=== PATIENT | male | born 1955 | race Caucasian/White ===

== ENCOUNTER → 2019-10-05 09:22 | Outpatient (CLI) | payer MEDICARE, OTHER, SELFPAY ==
[2019-10-05 11:24] LABS: Blood Urea Nitrogen 19 mg/dL (9-20); Calcium 9.8 mg/dL (8.4-10.2); Carbon Dioxide 28 mmol/L (22-32); Chloride 105 mmol/L (98-107); Estimated Glomerular Filt Rate > 60.0 mL/min (>60); Glucose 96 mg/dL (80-110); HEMOLYSIS < 15 (0-50); Potassium 4.8 mmol/L (3.4-5.1); Sodium 141 mmol/L (137-145)
[2019-10-05 11:56] LABS: Prostate Specific Antigen Scrn 1.45 ng/mL (0.1-4.0)
== END ==
PROVIDERS: PCP Student in an Organized Health Care Education/Training Program; Referring Provider Student in an Organized Health Care Education/Training Program; Visit Provider Student in an Organized Health Care Education/Training Program
DX: Z12.5 Encounter for screening for malignant neoplasm of prostate (principal); I10 Essential (primary) hypertension
CPT/HCPCS: 36415; 80048; G0103

== ENCOUNTER → 2019-10-15 16:06 | Outpatient (CLI) | payer MEDICARE, OTHER, SELFPAY ==
--- NOTE | 2019-10-15 16:09 | DI.US.S_ITS ---
PROCEDURE: US ABD AORTA ANEURYSM SCREEN INDICATIONS: AAA SCREEN TECHNIQUE: Real time scanning was performed of the aorta and iliac arteries, with image documentation. COMPARISON: None. FINDINGS: Aorta: Proximal aortic diameter measures 2.7 cm. Mid-aorta measures 2.2 cm. Distal aortic diameter is 2.2 cm. Iliac arteries: Right common iliac artery measures 1.3 cm. Left common iliac artery measures 1.4 cm. IMPRESSION: Negative for aneurysm. Dictated by: Magdy Rizo M.D. on 10/15/2019 at 16:39 Approved by: Magdy Rizo M.D. on 10/15/2019 at 16:40
== END ==
PROVIDERS: PCP Student in an Organized Health Care Education/Training Program; Referring Provider Student in an Organized Health Care Education/Training Program; Visit Provider Student in an Organized Health Care Education/Training Program
DX: Z13.6 Encounter for screening for cardiovascular disorders (principal); Z87.891 Personal history of nicotine dependence
CPT/HCPCS: 76706

== ENCOUNTER → 2020-10-16 07:09 | Outpatient (CLI) | payer MEDICARE, OTHER, SELFPAY ==
[2020-10-16 08:53] LABS: BUN Creatinine Ratio 17.1 (6-22); Blood Urea Nitrogen 22 mg/dL (9-20); Calcium 9.6 mg/dL (8.4-10.2); Carbon Dioxide 26 mmol/L (22-32); Chloride 106 mmol/L (98-107); Cholesterol 199 mg/dL (140-199); Estimated Glomerular Filt Rate 55.7 mL/min (>60); Glucose 92 mg/dL (80-110); HDL Cholesterol 42 mg/dL (40-60); HEMOLYSIS < 15 (0-50); LDL Cholesterol Calculated 139 mg/dL (<100); Potassium 4.5 mmol/L (3.4-5.1); Sodium 140 mmol/L (137-145); Triglycerides 90 mg/dL (35-150)
[2020-10-16 09:13] LABS: Prostate Specific Antigen Scrn 1.84 ng/mL (0.1-4.0)
== END ==
PROVIDERS: PCP Student in an Organized Health Care Education/Training Program; Referring Provider Student in an Organized Health Care Education/Training Program; Visit Provider Student in an Organized Health Care Education/Training Program
DX: E78.2 Mixed hyperlipidemia (principal); Z12.5 Encounter for screening for malignant neoplasm of prostate; I10 Essential (primary) hypertension
CPT/HCPCS: 36415; 80048; 80061; G0103

== ENCOUNTER → 2020-10-31 07:15 | Outpatient (CLI) | payer MEDICARE, OTHER, SELFPAY ==
[2020-10-31 07:59] LABS: BUN Creatinine Ratio 16.5 (6-22); Blood Urea Nitrogen 19 mg/dL (9-20); Estimated Glomerular Filt Rate > 60.0 mL/min (>60)
== END ==
PROVIDERS: PCP Student in an Organized Health Care Education/Training Program; Referring Provider Student in an Organized Health Care Education/Training Program; Visit Provider Student in an Organized Health Care Education/Training Program
DX: N17.9 Acute kidney failure, unspecified (principal)
CPT/HCPCS: 36415; 82565; 84520

== ENCOUNTER → 2021-01-21 07:16 | Outpatient (CLI) | payer MEDICARE, OTHER, SELFPAY ==
[2021-01-21 07:57] LABS: Cholesterol 152 mg/dL (140-199); HDL Cholesterol 60 mg/dL (40-60); LDL Cholesterol Calculated 75 mg/dL (<100); Triglycerides 83 mg/dL (35-150)
== END ==
PROVIDERS: PCP Student in an Organized Health Care Education/Training Program; Referring Provider Student in an Organized Health Care Education/Training Program; Visit Provider Student in an Organized Health Care Education/Training Program
DX: E78.2 Mixed hyperlipidemia (principal)
CPT/HCPCS: 36415; 80061

== ENCOUNTER → 2022-04-05 16:45 | Outpatient (CLI) | payer MEDICARE, OTHER, SELFPAY ==
[2022-04-05 19:11] LABS: Hep C Virus Ab w/Reflex Quant NEGATIVE s/c (NEGATIVE)
[2022-04-05 19:22] LABS: BUN Creatinine Ratio 23.8 (6-22); Blood Urea Nitrogen 30 mg/dL (9-20); Carbon Dioxide 27 mmol/L (22-32); Chloride 106 mmol/L (98-107); Estimated Glomerular Filt Rate > 60 mL/min (>60); Glucose 94 mg/dL (80-110); HEMOLYSIS < 15 (0-50); Potassium 4.2 mmol/L (3.4-5.1); Sodium 140 mmol/L (137-145)
[2022-04-05 19:57] LABS: Prostate Specific Antigen Scrn 1.81 ng/mL (0.1-4.0)
== END ==
PROVIDERS: PCP Student in an Organized Health Care Education/Training Program; Referring Provider Student in an Organized Health Care Education/Training Program; Visit Provider Student in an Organized Health Care Education/Training Program
DX: Z12.5 Encounter for screening for malignant neoplasm of prostate (principal); I10 Essential (primary) hypertension; Z11.59 Encounter for screening for other viral diseases
CPT/HCPCS: 36415; 80048; 86803; G0103

== ENCOUNTER → 2022-11-04 17:45 | Outpatient (CLI) | payer MEDICARE, OTHER, SELFPAY ==
--- NOTE | 2022-11-04 17:51 | DI.RAD.S_ITS ---
PROCEDURE: XR RIBS LT MIN 3V W CXR1V INDICATIONS: Rib injury TECHNIQUE: 2 views of the left ribs were acquired, along with a single view chest. COMPARISON: None. FINDINGS: Surgical changes and devices: None. Bones and chest wall: No fractures or dislocations. No suspicious bony lesions. Overlying soft tissues appear unremarkable. Lungs and pleura: No pleural effusions or pneumothorax. Lungs appear clear. Mediastinum: Mediastinal contours appear normal. Heart size is normal. IMPRESSION: No acute displaced rib fracture identified. Dictated by: Evan Flannery M.D. on 11/05/2022 at 11:16 Approved by: Evan Flannery M.D. on 11/05/2022 at 11:24
== END ==
PROVIDERS: PCP Student in an Organized Health Care Education/Training Program; Referring Provider Nurse Practitioner Family; Visit Provider Nurse Practitioner Family
DX: S29.9XXA Unspecified injury of thorax, initial encounter (principal); X58.XXXA Exposure to other specified factors, initial encounter
CPT/HCPCS: 71101

== ENCOUNTER → 2023-06-15 09:15 | Outpatient (CLI) | payer MEDICARE, OTHER, SELFPAY ==
[2023-06-15 10:05] LABS: Add Manual Diff / Slide Review NO; Basophils Absolute Auto 0 /uL (0-100); Basophils Percent Auto 0.4 % (0-2); Eosinophils Absolute Auto 200 /uL (0-450); Eosinophils Percent Auto 2.1 % (2-4); Hematocrit 41.6 % (41-53); Lymphocytes Absolute Auto 1900 /uL (1100-4500); Lymphocytes Percent Auto 24.2 % (25-40); Mean Corpuscular HGB Conc 33.7 % (30-36); Mean Corpuscular Volume 89.2 fL (80-100); Monocytes Absolute Auto 600 /uL (0-900); Monocytes Percent Auto 8.1 % (3-14); Neutrophils Absolute Auto 5000 /uL (1500-7000); Neutrophils Percent Auto 65.2 % (50-75); Platelet Count 243 X10^3/uL (150-400); Red Blood Cell Count 4.66 X10^6/uL (4.5-5.9); Red Cell Distribution Width 14.4 % (11.6-14.8); White Blood Cell Count 7.7 X10^3/uL (4.5-11.0)
[2023-06-15 10:12] LABS: Hemoglobin A1C% w Est Avg Glu 5.5 % (4.0-6.0)
[2023-06-15 10:30] LABS: Alanine Aminotransferase 26 IU/L (<50); Albumin 4.2 g/dL (3.5-5.0); Albumin Globulin Ratio 1.6 (1.0-2.8); Alkaline Phosphatase 50 U/L (38-126); Aspartate Aminotransferase 28 IU/L (17-59); BUN Creatinine Ratio 15.9 (6-22); Bilirubin Total 0.7 mg/dL (0.2-1.3); Blood Urea Nitrogen 17 mg/dL (9-20); Carbon Dioxide 30 mmol/L (22-32); Chloride 105 mmol/L (98-107); Cholesterol 138 mg/dL (140-199); Estimated Glomerular Filt Rate > 60 mL/min (>60); Globulin 2.7 g/dL (1.7-4.1); Glucose 93 mg/dL (80-110); HDL Cholesterol 50 mg/dL (40-60); HEMOLYSIS < 15 (0-50); LDL Cholesterol Calculated 73 mg/dL (<100); Potassium 4.5 mmol/L (3.4-5.1); Sodium 141 mmol/L (137-145); Total Protein 6.9 g/dL (6.3-8.2); Triglycerides 75 mg/dL (35-150)
[2023-06-15 11:18] LABS: Creatinine Urine Random 83.9 mg/dL
[2023-06-15 11:25] LABS: Microalbumi Creatinin Ratio Ur 11.9 ug/mg CR (<30)
== END ==
PROVIDERS: PCP Family Medicine; Referring Provider Family Medicine; Visit Provider Family Medicine
DX: I10 Essential (primary) hypertension (principal); E78.2 Mixed hyperlipidemia; Z76.89 Persons encountering health services in other specified circumstances; B35.1 Tinea unguium; Z13.1 Encounter for screening for diabetes mellitus
CPT/HCPCS: 36415; 80053; 80061; 82043; 82570; 83036; 85025

== ENCOUNTER → 2024-06-11 10:21 | Outpatient (CLI) | payer MEDICARE, OTHER, SELFPAY ==
[2024-06-11 11:18] LABS: Add Manual Diff / Slide Review NO; Basophils Absolute Auto 0 /uL (0-100); Basophils Percent Auto 0.4 % (0-2); Eosinophils Absolute Auto 100 /uL (0-450); Eosinophils Percent Auto 1.3 % (2-4); Hematocrit 40.4 % (41-53); Hemoglobin 13.7 g/dL (13.5-17.5); Lymphocytes Absolute Auto 1900 /uL (1100-4500); Lymphocytes Percent Auto 24.6 % (25-40); Mean Corpuscular HGB Conc 33.9 % (30-36); Mean Corpuscular Volume 88.7 fL (80-100); Monocytes Absolute Auto 600 /uL (0-900); Monocytes Percent Auto 8.2 % (3-14); Neutrophils Absolute Auto 5100 /uL (1500-7000); Neutrophils Percent Auto 65.5 % (50-75); Platelet Count 221 X10^3/uL (150-400); Red Blood Cell Count 4.56 X10^6/uL (4.5-5.9); Red Cell Distribution Width 13.4 % (11.6-14.8); White Blood Cell Count 7.7 X10^3/uL (4.5-11.0)
[2024-06-11 11:36] LABS: Alanine Aminotransferase 26 IU/L (<50); Albumin 4.2 g/dL (3.5-5.0); Albumin Globulin Ratio 1.8 (1.0-2.8); Alkaline Phosphatase 49 U/L (38-126); Aspartate Aminotransferase 34 IU/L (17-59); BUN Creatinine Ratio 15.5 (6-22); Bilirubin Total 0.6 mg/dL (0.2-1.3); Blood Urea Nitrogen 20 mg/dL (9-20); Calcium 9.2 mg/dL (8.4-10.2); Carbon Dioxide 28 mmol/L (22-32); Chloride 105 mmol/L (98-107); Cholesterol 154 mg/dL (140-199); Estimated Glomerular Filt Rate > 60 mL/min (>60); Globulin 2.4 g/dL (1.7-4.1); Glucose 95 mg/dL (80-110); HDL Cholesterol 54 mg/dL (40-60); HEMOLYSIS < 15 (0-50); LDL Cholesterol Calculated 84 mg/dL (<100); Potassium 4.5 mmol/L (3.4-5.1); Sodium 138 mmol/L (137-145); Total Protein 6.6 g/dL (6.3-8.2); Triglycerides 82 mg/dL (35-150)
[2024-06-11 11:48] LABS: Creatinine Urine Random 54.04 mg/dL
[2024-06-11 11:59] LABS: Microalbumin Urine Random < 0.6 mg/dL (0-1.6)
[2024-06-11 12:06] LABS: Prostate Specific Antigen Scrn 2.71 ng/mL (0.1-4.0)
== END ==
LOC: LAB 10:22
PROVIDERS: PCP Family Medicine; Referring Provider Family Medicine; Visit Provider Family Medicine
DX: E78.2 Mixed hyperlipidemia (principal); Z12.5 Encounter for screening for malignant neoplasm of prostate; I10 Essential (primary) hypertension
CPT/HCPCS: 36415; 80053; 80061; 82043; 82570; 85025; G0103

== ENCOUNTER → 2024-10-08 14:22 | Outpatient (CLI) | payer MEDICARE, OTHER, SELFPAY ==
--- NOTE | 2024-10-08 14:25 | DI.RAD.S_ITS ---
PROCEDURE: XR HAND LT MIN 3V INDICATIONS: Left hand pain - 1st mtp and metacarpal TECHNIQUE: 3 views of the hand acquired. COMPARISON: None. FINDINGS: Bones: No acute fractures or dislocations. Chronic healed fracture deformity of the 5th metacarpal. Mild degenerative changes. Carpal bones are normally aligned. No suspicious bony lesions. Soft tissues: Trace chondrocalcinosis. IMPRESSION: No acute osseous abnormality. If there is continued clinical concern or persistent symptoms, repeat radiographs or cross-sectional imaging (e.g. CT, MRI) may be helpful for further evaluation. Approved by: Evan Cisse M.D. on 10/08/2024 at 14:54
== END ==
PROVIDERS: PCP Family Medicine; Referring Provider Registered Nurse; Visit Provider Registered Nurse
DX: M79.642 Pain in left hand (principal)
CPT/HCPCS: 73130

== ENCOUNTER → 2025-03-28 10:57 | Outpatient (CLI) | payer MEDICARE, OTHER, SELFPAY ==
[2025-03-28 13:39] LABS: Influenza A - CEPHEID Flu A NEGATIVE (NEGATIVE); Influenza B - CEPHEID Flu B NEGATIVE (NEGATIVE)
[2025-03-28 13:40] LABS: COVID-19 CEPHEID 4-PLEX PCR Negative (Negative)
== END ==
PROVIDERS: PCP Family Medicine; Visit Provider Nurse Practitioner Family
DX: J02.9 Acute pharyngitis, unspecified (principal)
CPT/HCPCS: 87637

== ENCOUNTER → 2025-04-05 10:40 | Outpatient (CLI) | payer MEDICARE, OTHER, SELFPAY ==
--- NOTE | 2025-04-05 10:43 | DI.RAD.S_ITS ---
PROCEDURE: XR CHEST 2V INDICATIONS: Cough TECHNIQUE: 2 views of the chest were acquired. COMPARISON: None. FINDINGS: Surgical changes and devices: None. Lungs and pleura: Mild nonspecific diffuse interstitial prominence, which may suggest mild intersittial pulmonary edema. Small somewhat band-like opacity in the right lower lung zone is favored to reflect atelectasis. Lungs are otherwise clear. No pleural effusions or pneumothorax. Mediastinum: Mediastinal contours are normal. Heart size is normal. Bones and chest wall: No suspicious bony abnormalities. Soft tissues appear unremarkable. IMPRESSION: Mild nonspecific diffuse interstitial prominence, which may suggest mild intersittial pulmonary edema. Small somewhat band-like opacity in the right lower lung zone is favored to reflect atelectasis. Lungs are otherwise clear. Dictated by: Homero Rodríguez M.D. on 04/07/2025 at 23:05 Approved by: Homero Rodríguez M.D. on 04/07/2025 at 23:10
== END ==
LOC: RAD 10:42
PROVIDERS: PCP Family Medicine; Referring Provider Nurse Practitioner Family; Visit Provider Nurse Practitioner Family
DX: R05.9 Cough, unspecified (principal)
CPT/HCPCS: 71046

== ENCOUNTER 2025-04-09 13:20 | Emergency (ER) | payer MEDICARE, OTHER, SELFPAY ==
[2025-04-09 13:25] VITALS: BP 137/63; PULSE 88; RESP 18; TEMP 37.2; O2SAT 95; BMI 26.2
--- NOTE | 2025-04-09 13:30 | DI.RAD.S_ITS ---
PROCEDURE: XR CHEST 2V INDICATIONS: cough TECHNIQUE: 2 views of the chest were acquired. COMPARISON: [facility], CR, XR CHEST 2V, 04/05/2025, 10:52. FINDINGS: Surgical changes and devices: None. Lungs and pleura: Interstitial patchy opacities are present bilaterally progressive compared to prior exam. Mediastinum: Mediastinal contours are normal. Heart size is normal. Bones and chest wall: No suspicious bony abnormalities. Soft tissues appear unremarkable. IMPRESSION: Progressive opacities most suggestive of pneumonia. Recommend interval follow- up to document resolution. Dictated by: Reba Holliday M.D. on 04/09/2025 at 14:13 Approved by: Reba Holliday M.D. on 04/09/2025 at 14:13
[2025-04-09 14:15] LABS: Influenza A - CEPHEID Flu A NEGATIVE (NEGATIVE); Influenza B - CEPHEID Flu B NEGATIVE (NEGATIVE)
[2025-04-09 14:37] LABS: COVID-19 CEPHEID 4-PLEX PCR Negative (Negative)
--- NOTE | 2025-04-09 15:33 | ED_ITS ---
<Statement entered by Gwyn Jones, DO - 04/09/25 20:05> Co-sign statement: I was available for consultation during this patient's emergency department visit. This chart is being signed by myself for administrative purposes only. I do not have direct contact with this patient during this visit. They were seen independently by the APC. HPI - URI/Sore Throat General Chief Complaint: Shortness of Breath/Dyspnea Stated Complaint: cough Time Seen by Provider: 04/09/25 14:34 Source: patient Mode of arrival: Ambulatory History of Present Illness HPI Narrative: Mr. Ayala is a pleasant 69-year-old male with a past medical history of hypertension, hyperlipidemia, sacroiliac dysfunction who presents to the emergency department for cough x3 weeks. Patient's symptoms are worse at night. He has been to the walk-in clinic a few times, had an XR Tuesday, was started on azithromycin Tuesday (yesteday). States that despite taking azithromycin since yesterday, his symptoms have been getting worse. He denies any known sick contacts, no recent hospitalization, no history of COPD, asthma, quit smoking 30 years ago. He is not having any pain, he is not able to produce any mucus. He is having a runny nose. No nausea vomiting, diarrhea. Related Data Previous Rx's ?Medication ?Instructions ?Recorded atorvastatin 10 mg tablet (Lipitor) 10 mg PO HS #90 ta bs 06/20/24 lisinopril 20 mg tablet 20 mg PO DAILY #90 tabs 06/03 02/24 benzonatate 200 mg capsule 200 mg PO BID PRN cough #28 caps 03/28/25 azithromycin 250 mg tablet See Rx Instructions PO .COM PLEX #6 04/08/25 tabs amoxicillin 875 mg-potassium 1 tab PO BID 7 days #14 t abs 04/09/25 clavulanate 125 mg tablet doxycycline hyclate 100 mg capsule 100 mg PO BID 7 day s #14 caps 04/09/25 hydrocodone-homatropine 5 mg-1.5 5 ml PO Q6H PRN cough 3 days #60 mL 04/09/25 mg/5 mL (5 mL) oral solution (Hycodan) ondansetron 4 mg disintegrating 4 mg PO Q8H PRN nausea and 04/09/25 tablet vomiting #14 tabs Allergies Allergy/AdvReac Type Severity Reaction Status Date / Time No Known Drug Allergies Allergy Verified 04/05/25 10:16 Review of Systems Review of Systems ROS Unobtainable: All systems reviewed & are unremarkable except as noted in HPI and below Patient History Medical History Shoulder pain (~2015) History of colon polyps Surgical History Anesthesia History of tonsillectomy (~1957) History of removal of cyst (~1973) History of colonoscopy (~2014) History of shoulder surgery (~04/2017) Family History Father Brain aneurysm Mother Diabetes mellitus Hypertension Social History Smoking Status: Never smoker Tobacco: How many years used: 25 alcohol intake: former substance use type: does not use during the past year weight has: decreased > 10 lbs well-balanced diet: daily or most days Type(s) of exercise: walking frequency: daily duration: 15-30 minutes/day Smoking Status: Never smoker Exam Narrative Exam Narrative: GENERAL: 69 year old patient appears stated age. Well-developed patient, in no acute distress. HEAD: Atraumatic. Normocephalic. EYES: No scleral icterus. No injection or drainage. NECK: Trachea midline. Cervical ROM intact. CARDIOVASCULAR: Regular rate and rhythm. RESPIRATORY: ?Nonlabored respirations. ?Speaking in clear, full sentences. Pain coarse breath sounds bilaterally, no wheezing, no tachypnea. EXTREMITIES: No LE edema. NEURO: AOx3. ?Clear speech. ?Moves all 4 extremities appropriately. SKIN: No rash or erythema of visible areas Initial Vital Signs Initial Vital Signs: Vital Signs Temperature 98.9 F 04/09/25 13:25 Pulse Rate 88 04/09/25 13:25 Respiratory Rate 18 04/09/25 13:25 Blood Pressure 137/63 04/09/25 13:25 Pulse Oximetry 95 04/09/25 13:25 Oxygen Delivery Method Room Air 04/09/25 13:25 Course Orders Ordered: ED Orders 04/09/25 13:30 XR chest 2V Stat Covid-19 + FLU A/B + RSV - PCR Stat Discontinued Medications Hydrocodone Bitart/Acetaminophen (Hydrocodone/Acet 5/325 Tablet) 1 tab PO NOW ONE Stop: 04/09/25 15:49 Last Admin: 04/09/25 16:04 Dose: 1 tab Amoxicillin/Clavulanate Potassium (Amoxicillin/Clav 875/125 Mg) 1 tab PO NOW ONE Stop: 04/09/25 15:49 Last Admin: 04/09/25 16:04 Dose: 1 tab Doxycycline Hyclate (Doxycycline Hyclate 100 Mg Tablet) 100 mg PO NOW ONE Stop: 04/09/25 15:49 Last Admin: 04/09/25 16:04 Dose: 100 mg Ondansetron HCl (Ondansetron 4 Mg Odt) 4 mg SL NOW ONE Stop: 04/09/25 15:49 Last Admin: 04/09/25 16:04 Dose: 4 mg Vital Signs Vital signs: Vital Signs - 8 hr 04/09/25 13:25 04/09/25 15:38 Temperature 98.9 F Pulse Rate 88 69 Respiratory Rate 18 18 Blood Pressure 137/63 120/67 Pulse Oximetry 95 96 Oxygen Delivery Method Room Air Room Air MDM - URI/Sore Throat Medical Records Attestation: I reviewed the patient's medical records. Lab Data Labs: Lab Results 04/09/25 Range/Units 13:30 SARS-CoV-2 (PCR) Negative (Negative) Influenza A (RT-PCR) Flu a negative (NEGATIVE) Influenza B (RT-PCR) Flu b negative (NEGATIVE) RSV (PCR) Negative (Negative) Imaging Data Chest x-ray: Radiologist's Impression: PROCEDURE: XR CHEST 2V INDICATIONS: cough TECHNIQUE: 2 views of the chest were acquired. COMPARISON: [facility], , XR CHEST 2V, 04/05/2025, 10:52. FINDINGS: Surgical changes and devices: None. Lungs and pleura: Interstitial patchy opacities are present bilaterally progressive compared to prior exam. Mediastinum: Mediastinal contours are normal. Heart size is normal. Bones and chest wall: No suspicious bony abnormalities. Soft tissues appear unremarkable. IMPRESSION: Progressive opacities most suggestive of pneumonia. Recommend interval follow- up to document resolution. Dictated by: Reba Holliday M.D. on 04/09/2025 at 14:13 Approved by: Reba Holliday M.D. on 04/09/2025 at 14:13 [facility] Narrative Medical decision making narrative: 69-year-old male with a past medical history of hypertension, hyperlipidemia, sacroiliac dysfunction who presents to the emergency department for cough x3 weeks. Differential diagnosis includes but is not limited to pneumonia, viral syndrome, postviral cough, reactive airway disease, pleural effusion, malignancy, etc. On exam patient is in no acute distress, nontoxic appearing, vital signs within normal limits. He is not tachycardic, tachypneic or hypoxic. Viral swab and chest x-ray obtained in triage. He went to the walk-in clinic on Tuesday had an x-ray and was prescribed azithromycin which started yesterday. He is not having any wheezing, some coarse breath sounds bilaterally, no lower extremity edema. Repeat x-ray today reveals progressive opacities most suggestive of bilateral pneumonia. Recommend interval follow up. Negative viral swab. Printed and discussed results with the patient his . We will treat as community-acquired pneumonia with Augmentin and doxycycline. Recommended stopping the azithromycin. We will print Hycodan for severe nighttime coughing. Discussed risks of opioids. We will also prescribed Zofran help prevent any nausea. Discussed with the patient that he needs to have a repeat chest x-ray with his primary care doctor to assure resolution of this pneumonia, however we discussed very strict ER return precautions. Patient's verbalized understanding all information happy with the plan, he is ambulatory and stable for discharge home all vital signs within normal limits. Discharge Plan Departure Patient Disposition: Home Clinical Impression: Bilateral pneumonia Qualifiers: Pneumonia type: due to unspecified organism Lung location: unspecified part of lung Qualified Code(s): J18.9 - Pneumonia, unspecified organism Community acquired pneumonia Qualifiers: Laterality: unspecified laterality Qualified Code(s): J18.9 - Pneumonia, unspecified organism Instructions: DI for Pneumonia -- Adult Activity Restrictions/Additional Instructions: Dear Jamie, Thank you for coming to the emergency department. Today you were evaluated for persistent cough. Your chest x-ray revealed progressive pneumonia of both lungs. Your vital signs are all very reassuring. I would like you to stop taking the azithromycin and start taking doxycycline and Augmentin. You were also provided with a printed script for an opioid cough suppressant called Myah ycodagage. Please bring this to your pharmacy to be filled, you may need to bring it to a different pharmacies if they do not have the medication in stock. Because antibiotics and opioids can upset your stomach, you have been prescribed Zofran which is a nausea medication to use only if needed. Please rest, hydrate, complete the full course of antibiotics, and follow up with your primary care doctor for repeat chest x-ray. If you develop any new or worsening symptoms such as trouble breathing, chest pain, persistent fevers or any other concerns please return to ER immediately. You have been prescribed a short course of narcotic medications. These are potentially dangerous and addictive medications that should be used carefully. While on these medications you cannot drive or operate heavy machinery. Additionally, you cannot sign legal documents or perform any duties such as this. Many people get constipated on narcotic medications so it would be advisable to discuss stool softeners with the pharmacist when you excelsior picker your prescription. Please understand that we cannot provide further refills of narcotics or controlled substances through the ED and your pain management will need to be through your Primary Care Provider Please follow up with your primary care doctor within the next 2-3 days for ER follow-up. (If you do not have a PCP you can call [phone]. ?to schedule an appointment with an [facility] Primary Care Provider) IF YOU DEVELOP ANY NEW OR WORSENING SYMPTOMS, RETURN TO THE ER! Please read the attached instructions, they highlight more specific treatments and interventions for you at home. Thank you for letting me participate in your care, Yael Diez PA-C Prescriptions: New hydrocodone-homatropine [Hycodan] 5-1.5 mg/5 mL (5 mL) solution 5 ml PO Q6H PRN (Reason: cough) 3 Days Qty: 60 0RF doxycycline hyclate 100 mg capsule 100 mg PO BID 7 Days Qty: 14 0RF ondansetron 4 mg tablet,disintegrating 4 mg PO Q8H PRN (Reason: nausea and vomiting) Qty: 14 0RF amoxicillin-pot clavulanate 875-125 mg tablet 1 tab PO BID 7 Days Qty: 14 0RF No Action atorvastatin [Lipitor] 10 mg tablet 10 mg PO HS Qty: 90 3RF lisinopril 20 mg tablet 20 mg PO DAILY Qty: 90 3RF benzonatate 200 mg capsule 200 mg PO BID PRN (Reason: cough) Qty: 28 0RF azithromycin 250 mg tablet See Rx Instructions PO .COMPLEX Qty: 6 0RF Rx Instructions: For 250 mg dose pack: take 500 mg today (day 1), then 250 mg for 4 days (days 2-5) PO Referrals: Nato Perez MD [Primary Care Provider, Family Practice] Stand Alone Forms: Patient Portal/API
[2025-04-09 15:38] VITALS: BP 120/67; PULSE 69; RESP 18; O2SAT 96
[2025-04-09] MEDS: AMOXICILLIN/CLAV 875/125 MG 1 TAB PO (16:04)
[2025-04-09] MEDS: ONDANSETRON 4 MG ODT SL (16:04)
[2025-04-09] MEDS: DOXYCYCLINE HYCLATE 100 MG TABLET PO (16:04)
== END 2025-04-09 16:09 | disposition home or self-care (01) ==
PROVIDERS: Family Medicine; Emergency Provider Physician Assistant; PCP Family Medicine
DX: J18.9 Pneumonia, unspecified organism (principal)
CPT/HCPCS: 71046; 87637; 99283

== ENCOUNTER 2025-04-10 20:06 | Inpatient (IN) | payer MEDICARE, OTHER, SELFPAY ==
[2025-04-10 20:20] VITALS: BP 150/67; PULSE 102; RESP 20; TEMP 37.9; O2SAT 90; BMI 26.0
[2025-04-10] MEDS: ALBUTEROL/IPRATROPIUM 3 ML AMPUL INH (20:36)
[2025-04-10 20:38] VITALS: PULSE 95; RESP 18; O2SAT 96
[2025-04-10 20:49] VITALS: PULSE 90; RESP 16; O2SAT 92
--- NOTE | 2025-04-10 23:05 | DI.RAD.S_ITS ---
PROCEDURE: XR CHEST 2V INDICATIONS: cough TECHNIQUE: 2 views of the chest were acquired. COMPARISON: [facility], CR, XR CHEST 2V, 04/09/2025, 13:28. [facility], CR, XR CHEST 2V, 04/05/2025, 10:52. FINDINGS: Surgical changes and devices: None. Lungs and pleura: Lungs are moderately inflated. Progressive extensive multifocal airspace opacities throughout both lungs. Trace bilateral pleural effusions. No pneumothorax. Mediastinum: Mediastinal contours are normal. Heart size is normal. Bones and chest wall: No suspicious bony abnormalities. Soft tissues appear unremarkable. IMPRESSION: Progressive extensive multifocal airspace opacities concerning for atypical/multifocal pneumonia, consider COVID-19 pneumonia. Dictated by: John Ness M.D. on 04/10/2025 at 23:51 Approved by: John Ness M.D. on 04/10/2025 at 23:53
[2025-04-11] VITALS (15 sets, daily range): BP systolic 112–144; BP diastolic 55–70; PULSE 69–88; RESP 15–33; TEMP 36.3–37.4; O2SAT 83–96; BMI 26.3
[2025-04-11 01:52] LABS: Lactate (Lactic Acid) 0.8 mmol/L (0.7-2.1)
--- NOTE | 2025-04-11 01:57 | ED_ITS ---
HPI - General Adult General Chief complaint: Upper Respiratory Symptoms Stated complaint: pneumonia Time Seen by Provider: 04/10/25 23:05 Source: patient Mode of arrival: Ambulatory History of Present Illness HPI narrative: 69-year-old male with ongoing cough and shortness of breath, recalls being seen about 10 days ago walk-in clinic with cough, given prescription for azithromycin, presented here on 04/09/2025 with continued cough, chest x-ray showing infiltrates, no oxygen requirement, was advised to stop the azithromycin and was prescribed new course of antibiotic with Augmentin and doxycycline, he has been taking those medications for the last 3 days. Has continued cough. Feels feverish. Denies chest discomfort. Cough remains dry. No leg pain or swelling symptoms. Related Data Previous Rx's ?Medication ?Instructions ?Recorded atorvastatin 10 mg tablet (Lipitor) 10 mg PO HS #90 ta bs 06/20/24 lisinopril 20 mg tablet 20 mg PO DAILY #90 tabs 06/03 02/24 benzonatate 200 mg capsule 200 mg PO BID PRN cough #28 caps 03/28/25 amoxicillin 875 mg-potassium 1 tab PO BID 7 days #14 t abs 04/09/25 clavulanate 125 mg tablet doxycycline hyclate 100 mg capsule 100 mg PO BID 7 day s #14 caps 04/09/25 hydrocodone-homatropine 5 mg-1.5 5 ml PO Q6H PRN cough 3 days #60 mL 04/09/25 mg/5 mL (5 mL) oral solution (Hycodan) ondansetron 4 mg disintegrating 4 mg PO Q8H PRN nausea and 04/09/25 tablet vomiting #14 tabs Allergies Allergy/AdvReac Type Severity Reaction Status Date / Time No Known Drug Allergies Allergy Verified 04/10/25 20:20 Patient History Medical History Shoulder pain (~2015) History of colon polyps Surgical History Anesthesia History of tonsillectomy (~1957) History of removal of cyst (~1973) History of colonoscopy (~2014) History of shoulder surgery (~04/2017) Family History Father Brain aneurysm Mother Diabetes mellitus Hypertension Social History household members: spouse Smoking Status: Former smoker Tobacco: How many years used: 25 alcohol intake: former substance use type: does not use during the past year weight has: decreased > 10 lbs well-balanced diet: daily or most days Type(s) of exercise: walking frequency: daily duration: 15-30 minutes/day Smoking Status: Former smoker Exam Narrative Exam Narrative: GENERAL: Well-developed patient, in mild distress. HEAD: Atraumatic. Normocephalic. EYES: Pupils equal round and reactive. Extraocular motions intact. No scleral icterus. No injection or drainage. ENT: Nose without bleeding, purulent drainage. Throat without erythema, tonsillar hypertrophy or exudate. Airway patent. NECK: Trachea midline. Non tender CARDIOVASCULAR: Regular rate and rhythm without murmurs, gallops, or rubs. RESPIRATORY: Clear to auscultation. Breath sounds equal bilaterally. No wheezes, rales, or rhonchi. GASTROINTESTINAL: Abdomen soft, non-tender, nondistended. EXTREMITIES: No edema or joint tenderness. BACK: Nontender without deformity or crepitance. No flank tenderness. NEURO: AOx3. Motor functions grossly nonfocal. SKIN: No rash or erythema of visible areas Initial Vital Signs Initial Vital Signs: Vital Signs Temperature 100.3 F H 04/10/25 20:20 Pulse Rate 102 H 04/10/25 20:20 Respiratory Rate 20 04/10/25 20:20 Blood Pressure 150/67 H 04/10/25 20:20 Pulse Oximetry 90 L 04/10/25 20:20 Oxygen Delivery Method Room Air 04/10/25 20:20 Course Orders Ordered: Acetaminophen (Acetaminophen 325 Mg Tablet) 650 mg PO Q6HR PRN PRN Reason: Fever/Mild Pain (1-3) Albuterol (Albuterol 2.5 Mg/3 Ml Neb (Adult)) 2.5 mg INH [id number] MARILOU Last Admin: 04/11/25 13:32 Dose: 2.5 mg Documented By: Admin: 04/11/25 09:01 Dose: 2.5 mg Documented By: Admin: 04/11/25 07:00 Dose: Not Given Documented By: ELY Atorvastatin Calcium (Atorvastatin 20 Mg Tablet) 10 mg PO BEDTIME MARILOU Azithromycin (Azithromycin 250 Mg Tablet) 500 mg PO Q24H MARILOU Stop: 04/14/25 13:46 Last Admin: 04/11/25 13:56 Dose: 500 mg Documented By: ANAI Ceftriaxone Sodium 1,000 mg/ (Sodium Chloride) 100 mls @ 200 mls/hr IV Q24H [facility] Stop: 04/17/25 00:59 Morphine Sulfate (Morphine 2 Mg/Ml Inj) 2 mg IV Q4HR PRN PRN Reason: Pain, Moderate (4-6) Naloxone HCl (Naloxone 0.4 Mg/Ml Vial) 0.2 mg IV Q2MIN PRN PRN Reason: Opiate Reversal Ondansetron HCl (Ondansetron 4 Mg/2 Ml Inj) 4 mg IV Q4HR PRN PRN Reason: Nausea And Vomiting Discontinued Medications Albuterol (Albuterol Hfa Prepack) 1 box MISC DIRECTED ONE Stop: 04/11/25 02:07 Last Admin: 04/11/25 02:14 Dose: 1 box Documented By: Albuterol/Ipratropium (Albuterol/Ipratropium 3 Ml Ampul) 3 ml INH NOW ONE Stop: 04/10/25 20:30 Last Admin: 04/10/25 20:36 Dose: 3 ml Documented By: SARAHY Doxycycline Hyclate (Doxycycline Hyclate 100 Mg Tablet) 100 mg PO NOW ONE Stop: 04/11/25 00:31 Last Admin: 04/11/25 02:16 Dose: 100 mg Documented By: Ceftriaxone Sodium 1,000 mg/ (Sodium Chloride) 100 mls @ 200 mls/hr IV NOW ONE Stop: 04/11/25 00:31 Last Infusion: 04/11/25 02:29 Dose: Infused Documented By: Admin: 04/11/25 01:48 Dose: 200 mls/hr Documented By: Vital Signs Vital signs: Vital Signs - 8 hr 04/10/25 20:20 04/10/25 20:38 04/10/25 20:49 Temperature 100.3 F H Pulse Rate 102 H 95 H 90 Respiratory Rate 20 18 16 Blood Pressure 150/67 H Pulse Oximetry 90 L 96 92 Oxygen Delivery Method Room Air Room Air Room Air Fraction of Inspired Oxygen 21 04/11/25 01:16 04/11/25 01:17 04/11/25 01:17 Temperature Pulse Rate 84 81 Respiratory Rate Blood Pressure 121/60 Pulse Oximetry 83 L 87 L Oxygen Delivery Method Fraction of Inspired Oxygen 04/11/25 01:30 04/11/25 01:30 Temperature Pulse Rate 74 Respiratory Rate 24 Blood Pressure 129/65 Pulse Oximetry 93 Oxygen Delivery Method Room Air Fraction of Inspired Oxygen Medical Decision Making Lab Data 04/11/25 14:10 04/11/25 01:25 Labs: Lab Results 04/11/25 04/11/25 Range/Units 01:25 01:58 WBC 20.7 H (4.5-11.0) X10^3/uL RBC 4.00 L (4.5-5.9) X10^6/uL Hgb 11.8 L (13.5-17.5) g/dL Hct 35.2 L (41-53) % MCV 88.0 (80-100) fL MCH 29.5 (26-34) PG MCHC 33.5 (30-36) % RDW 13.8 (11.6-14.8) % Plt Count 441 H (150-400) X10^3/uL Neut % (Auto) 80.5 H (50-75) % Lymph % (Auto) 7.7 L (25-40) % [place] % (Auto) 10.5 (3-14) % Eos % (Auto) 0.5 L (2-4) % Baso % (Auto) 0.8 (0-2) % Neut # (Auto) 86338 H (1822-9385) /uL Lymph # (Auto) 1600 (9217-3313) /uL [place] # (Auto) 2200 H (0-900) /uL Eos # (Auto) 100 (0-450) /uL Baso # (Auto) 200 H (0-100) /uL Sodium 136 L (137-145) mmol/L Potassium 4.9 (3.4-5.1) mmol/L Chloride 101 (98-107) mmol/L Carbon Dioxide 25 (22-32) mmol/L BUN 21 H (9-20) mg/dL Creatinine 1.06 (0.66-1.25) mg/dL Estimated GFR > 60 (>60) mL/min BUN/Creatinine Ratio 19.8 (6-22) Glucose 104 H (70-99) mg/dL Lactate 0.8 (0.7-2.1) mmol/L Calcium 9.1 (8.4-10.2) mg/dL Total Bilirubin 0.9 (0.2-1.3) mg/dL AST 37 (17-59) IU/L ALT 42 (<50) IU/L Alkaline Phosphatase 100 (38-126) U/L Total Protein 6.2 L (6.3-8.2) g/dL Albumin 3.4 L (3.5-5.0) g/dL Globulin 2.8 (1.7-4.1) g/dL Albumin/Globulin Ratio 1.2 (1.0-2.8) Procalcitonin 0.473 (<0.5) ng/mL SARS-CoV-2 (PCR) Negative (Negative) Influenza A (RT-PCR) Flu a negative (NEGATIVE) Influenza B (RT-PCR) Flu b negative (NEGATIVE) RSV (PCR) Negative (Negative) MDM Narrative Medical decision making narrative: 69-year-old male on oral antibiotics for community-acquired pneumonia, initially on azithromycin, switched 3 days ago to regimen of Augmentin and doxycycline, still having cough. Afebrile, sirs screen negative. Speaks in full sentences. He is not using inhalers. Has continued cough without chest pain. No oxygen requirement on triage, no respiratory distress. Cough persisting despite Tessalon Perles. Labs pending. Chest XRay shows progressive bilateral pulmonary infiltrates. See radiology report. Trial of albuterol inhaler with spacer, 2 puffs 4 times daily, dispensed in the emergency department. Frequent coughing, saturations drifting down, 84-88% with coughing fits. Labs pending. Lab data: White blood cell count 93211, lactate 0.8 normal. 69-year-old male with recent course of antibiotic and ongoing coughing, previous azithromycin, now day 2 oral Augmentin/doxycycline, with increased frequency of coughing, desaturation with coughing, x-ray showed pneumonia from recent visit 04/09/2025, x-ray today shows progressive of bilateral infiltrates. COVID negative. Consider admission. PCP Chris. We will discussed with cross cover physician regarding admission Discussed with Dr Fuentes, accepts patient for admission Discharge Plan Departure Patient Disposition: Admitted As Inpatient Clinical Impression: Pneumonia, Hypoxia Admit Date/Time: 04/11/25 02:58 Admit Provider: Aryan Fuentes
[2025-04-11 02:10] LABS: Procalcitonin 0.473 ng/mL (<0.5)
[2025-04-11] MEDS: ALBUTEROL HFA PREPACK 1 BOX MISC (02:14)
[2025-04-11] MEDS: DOXYCYCLINE HYCLATE 100 MG TABLET PO (02:16)
[2025-04-11 02:24] LABS: Add Manual Diff / Slide Review NO; Hematocrit 35.2 % (41-53); Hemoglobin 11.8 g/dL (13.5-17.5); Lymphocytes Absolute Auto 1600 /uL (1100-4500); Mean Corpuscular HGB Conc 33.5 % (30-36); Mean Corpuscular Hemoglobin 29.5 PG (26-34); Mean Corpuscular Volume 88.0 fL (80-100); Platelet Count 441 X10^3/uL (150-400)
[2025-04-11 02:44] LABS: Influenza A - CEPHEID Flu A NEGATIVE (NEGATIVE); Influenza B - CEPHEID Flu B NEGATIVE (NEGATIVE)
[2025-04-11 02:45] LABS: COVID-19 CEPHEID 4-PLEX PCR Negative (Negative)
[2025-04-11 03:02] LABS: Alanine Aminotransferase 42 IU/L (<50); Alkaline Phosphatase 100 U/L (38-126); Blood Urea Nitrogen 21 mg/dL (9-20); Calcium 9.1 mg/dL (8.4-10.2); Chloride 101 mmol/L (98-107); Estimated Glomerular Filt Rate > 60 mL/min (>60); Glucose 104 mg/dL (70-99); HEMOLYSIS 16 (0-50); Potassium 4.9 mmol/L (3.4-5.1); Sodium 136 mmol/L (137-145); Total Protein 6.2 g/dL (6.3-8.2)
[2025-04-11 03:03] LABS: Albumin 3.4 g/dL (3.5-5.0); Albumin Globulin Ratio 1.2 (1.0-2.8); Carbon Dioxide 25 mmol/L (22-32); Globulin 2.8 g/dL (1.7-4.1)
[2025-04-11] MEDS: ALBUTEROL 2.5 MG/3 ML NEB (ADULT) INH ×2 (09:01→13:32)
--- NOTE | 2025-04-11 11:52 | CM.DANOTE ---
DCP Assessment note pt is a 69Yo M admitted with pneumonia. failed OP PO Abx. here for IV abx. FACILITIES MECHANICAL DESIGN ENGINEER reviewed EMR per RN, waiting on orders from provider. currently on 2ltrs O2. none at baseline. FACILITIES MECHANICAL DESIGN ENGINEER met with pt in room. confirmed lives in [place] with spouse indep at baseline, no DME/O2. drives. has been feeling weaker past few weeks from pneumonia/not sleeping well overnight due to coughing but reports feeling mobilizing safe enough to dc home. does not anticipate any DCP/CM needs at this time. P: here a few days on IV abx, dc home with spouse support when medically stable. no CM needs likely. will continue to follow as needed in case any should arise GIOVANY Torres Discharge Planning/Care Management CM Discharge Assessment Start: 04/11/25 04:08 Freq: Status: Active Protocol: Document 04/11/25 11:51 (Rec: 04/11/25 11:52 [id number]) Discharge Planning Assessment Assigned Discharge GIOVANY [employer] Provider Nato Perez Insurance Medicare, DPOA/Assigned KONSTANTIN Mcmillan Designee Name Contact Information [phone] Advance Directives? No History Provided By Patient Prior Living Mobile home Arrangements Household Members spouse Type of Drives own vehicle transporation used prior to admit Independent with ADL Yes 's Is patient alert and Yes oriented? Barriers to No Discharge Discharge Plan Home Referrals Initiated None needed Whiteboard Updated Yes in Patient Room with name and ext. # of .Net Programmer Review Status In Process Please Provide Date 04/11/25 Initial DC Assessment Was Performed Next Review Type Continued Stay Review
--- NOTE | 2025-04-11 12:40 | P.HP_ITS ---
History of Present Illness History of Present Illness Date Patient Seen: 04/11/25 Chief complaint: pneumonia Narrative: 69-year-old male with hypertension, hyperlipidemia presenting to ER for ongoing cough and shortness of breath. Initially seen 1 week ago at [facility] for cough, given prescription for azithromycin. Presented to ER on 04/09 with continued cough, CXR demonstrated progressive infiltrates without increased O2 requirement. Was advised to stop azithromycin and was prescribed new course of Augmentin with doxycycline. Re-presented to ER 04/10 with continued cough, fever to 102? F. ER evaluation notable for borderline tachycardia, variable O2 sat 87-96% on room air, WBC 20.7 with neutrophilia, hemoglobin 11.8, platelets 441, procalcitonin 0.473, lactate 0.8; remainder of CBC, CMP, SARS-CoV-2, influenza, RSV testing negative. CXR showed progressive bilateral pulmonary infiltrates. Admitted for IV antibiotics and respiratory support. [facility] Medical History Shoulder pain (~2015) History of colon polyps Surgical History Anesthesia History of tonsillectomy (~1957) History of removal of cyst (~1973) History of colonoscopy (~2014) History of shoulder surgery (~04/2017) Family History Father Brain aneurysm Mother Diabetes mellitus Hypertension Social History household members: spouse Smoking Status: Former smoker Tobacco: How many years used: 25 alcohol intake: former substance use type: does not use during the past year weight has: decreased > 10 lbs well-balanced diet: daily or most days Type(s) of exercise: walking frequency: daily duration: 15-30 minutes/day Meds Home Medications and Allergies Home Medications ?Medication ?Instructions ?Recorded ?Confirmed ?Type atorvastatin 10 mg tablet (Lipitor) 10 mg PO HS #90 ta bs 06/20/24 04/11/25 Rx lisinopril 20 mg tablet 20 mg PO DAILY #90 tabs 06/0304/11/25 Rx benzonatate 200 mg capsule 200 mg PO BID PRN cough #28 caps 03/28/25 04/11/25 Rx amoxicillin 875 mg-potassium 1 tab PO BID 7 days #14 t abs 04/09/25 Rx clavulanate 125 mg tablet doxycycline hyclate 100 mg capsule 100 mg PO BID 7 day s #14 caps 04/09/25 Rx hydrocodone-homatropine 5 mg-1.5 5 ml PO Q6H PRN cough 3 days #60 mL 04/09/25 04/11/25 Rx mg/5 mL (5 mL) oral solution (Hycodan) ondansetron 4 mg disintegrating 4 mg PO Q8H PRN nausea and 04/09/25 04/11/25 Rx tablet vomiting #14 tabs Allergies Allergy/AdvReac Type Severity Reaction Status Date / Time No Known Drug Allergies Allergy Verified 04/10/25 20:20 Review of Systems Review of Systems ROS: Yes All systems reviewed with the patient and are negative except as otherwise documented Exam Vital Signs (past 8 hours): - 04/11/25 05:23 04/11/25 06:20 04/11/25 07:00 Temperature 97.5 F L Pulse Rate 79 Respiratory Rate 17 Blood Pressure 139/67 Pulse Oximetry 92 92 Oxygen Delivery Method Nasal Cannula Nasal Cannula Oxygen Flow Rate 2 2 Fraction of Inspired Oxygen 28 04/11/25 08:22 04/11/25 09:01 Temperature 97.9 F Pulse Rate 79 77 Respiratory Rate 15 16 Blood Pressure 112/55 L Pulse Oximetry 92 94 Oxygen Delivery Method Nasal Cannula Oxygen Flow Rate 2 2 Fraction of Inspired Oxygen Fraction of Inspired Oxygen 28 SaO2/FiO2 Ratio 328 Oxygen Delivery Method Nasal Cannula Oxygen Flow Rate 2 Narrative Exam Narrative: General: Pleasant, NAD HEENT: NC/AT, EOMI, moist membranes CV: RRR, normal S1-S2, no m/g/r Resp: Moderate crackles in bilateral lower lobes, comfortable WOB on 2 L NC Abd: Soft, NTND, +BS Ext: No edema Skin: No rash or lesions noted Neuro: A&O x3, moves all extremities, no focal deficits Objective Labs 04/11/25 14:10 04/11/25 01:25 Labs: Laboratory Results - last 24 hr 04/11/25 04/11/25 01:25 01:58 WBC 20.7 H RBC 4.00 L Hgb 11.8 L Hct 35.2 L MCV 88.0 MCH 29.5 MCHC 33.5 RDW 13.8 Plt Count 441 H Neut % (Auto) 80.5 H Lymph % (Auto) 7.7 L [place] % (Auto) 10.5 Eos % (Auto) 0.5 L Baso % (Auto) 0.8 Neut # (Auto) 55150 H Lymph # (Auto) 1600 [place] # (Auto) 2200 H Eos # (Auto) 100 Baso # (Auto) 200 H Sodium 136 L Potassium 4.9 Chloride 101 Carbon Dioxide 25 BUN 21 H Creatinine 1.06 Estimated GFR > 60 BUN/Creatinine Ratio 19.8 Glucose 104 H Lactate 0.8 Calcium 9.1 Total Bilirubin 0.9 AST 37 ALT 42 Alkaline Phosphatase 100 Total Protein 6.2 L Albumin 3.4 L Globulin 2.8 Albumin/Globulin Ratio 1.2 Procalcitonin 0.473 SARS-CoV-2 (PCR) Negative Influenza A (RT-PCR) Flu a negative Influenza B (RT-PCR) Flu b negative RSV (PCR) Negative Assessment & Plan Assessment & Plan narrative: 69-year-old male with hypertension, hyperlipidemia admitted for suspected CAP in the setting of failed outpatient treatment. #CAP Persistent, worsening cough x2 weeks with new fever and leukocytosis. Serial CXR over past 3 days demonstrate progressive bilateral infiltrates consistent with pneumonia. Likely bacterial CAP given negative viral swab in ER. -ceftriaxone 1g IV daily (04/11- ) -azithromycin 500 mg PO daily x3 days (04/11- ) -albuterol nebs q4h prn -benzonatate prn #HTN -hold home lisinopril for soft BP #HLD -home atorvastatin Dispo: Acute care Diet: General DVT ppx: SCDs Code: FULL PCP: Chris MDM: Deyanira Ayala (, ) COVID-19 COVID-19 status: Negative Time-Based Coding :: 35 minutes spent with patient and on the chart (including review of chart, obtaining history, exam, reviewing outside data, placing orders, documenting exam and treatment plan, and counseling patient) on 04/11/2025. PROFEE Manager Traffic Document charge(s): Yes Charge Codes Initial inpatient/observation care: 39546
[2025-04-11] MEDS: AZITHROMYCIN 250 MG TABLET 500 MG PO (13:56)
[2025-04-11 14:18] LABS: Add Manual Diff / Slide Review NO; Hematocrit 33.4 % (41-53); Hemoglobin 11.2 g/dL (13.5-17.5); Lymphocytes Absolute Auto 1600 /uL (1100-4500); Mean Corpuscular HGB Conc 33.7 % (30-36); Mean Corpuscular Hemoglobin 29.2 PG (26-34); Mean Corpuscular Volume 86.7 fL (80-100); Platelet Count 415 X10^3/uL (150-400)
[2025-04-11 15:15] LABS: Procalcitonin 0.432 ng/mL (<0.5)
[2025-04-11 15:26] LABS: Coronavirus NL 63 Not Detected (Not Detect); SARS- CoV-2 Not Detected (Not Detecte)
[2025-04-11] MEDS: ATORVASTATIN 20 MG TABLET 10 MG PO (20:30)
[2025-04-12 06:00] VITALS: BP 111/50; PULSE 79; RESP 18; TEMP 35.9; O2SAT 91
[2025-04-12 06:12] LABS: Blood Urea Nitrogen 16 mg/dL (9-20); Calcium 8.9 mg/dL (8.4-10.2); Carbon Dioxide 26 mmol/L (22-32); Chloride 101 mmol/L (98-107); Estimated Glomerular Filt Rate > 60 mL/min (>60); Glucose 99 mg/dL (70-99); HEMOLYSIS < 15 (0-50); Potassium 4.7 mmol/L (3.4-5.1); Sodium 135 mmol/L (137-145)
[2025-04-12] MEDS: ALBUTEROL 2.5 MG/3 ML NEB (ADULT) INH ×2 (06:12→19:12)
[2025-04-12 06:14] VITALS: PULSE 69; RESP 16; O2SAT 94
--- NOTE | 2025-04-12 08:18 | P.PN_ITS ---
Subjective Subjective Date Patient Seen: 04/12/25 Interval history: Reports feeling better overall but about the same as yesterday. Cough is most bothersome, kept him up until 1am last night. O2 reduce to 1L, denies any SOB or difficulty breathing. Exam Vital Signs (past 8 hours): - 04/12/25 06:00 04/12/25 06:14 Temperature 96.7 F L Pulse Rate 79 69 Respiratory Rate 18 16 Blood Pressure 111/50 L Pulse Oximetry 91 94 Oxygen Delivery Method Nasal Cannula Oxygen Flow Rate 2 2 Fraction of Inspired Oxygen 28 SaO2/FiO2 Ratio 328 Oxygen Delivery Method Nasal Cannula Oxygen Flow Rate 2 Narrative Exam Narrative: General: Pleasant, NAD HEENT: NC/AT, EOMI, moist membranes CV: RRR, normal S1-S2, no m/g/r Resp: Moderate crackles in bilateral lower lobes, comfortable WOB on 2 L NC Abd: Soft, NTND, +BS Ext: No edema Skin: No rash or lesions noted Neuro: A&O x3, moves all extremities, no focal deficits Objective Labs 04/12/25 13:40 04/12/25 05:21 Labs: Laboratory Results - last 24 hr 04/11/25 04/11/25 04/12/25 14:00 14:10 05:21 WBC 16.2 H RBC 3.85 L Hgb 11.2 L Hct 33.4 L MCV 86.7 MCH 29.2 MCHC 33.7 RDW 13.3 Plt Count 415 H Neut % (Auto) 77.0 H Lymph % (Auto) 10.1 L [place] % (Auto) 11.4 Eos % (Auto) 0.8 L Baso % (Auto) 0.7 Neut # (Auto) 53474 H Lymph # (Auto) 1600 [place] # (Auto) 1800 H Eos # (Auto) 100 Baso # (Auto) 100 Sodium 135 L Potassium 4.7 Chloride 101 Carbon Dioxide 26 BUN 16 Creatinine 0.92 Estimated GFR > 60 BUN/Creatinine Ratio 17.4 Glucose 99 Calcium 8.9 Procalcitonin 0.432 Chlamy pneumoniae PCR Not detected Adenovirus (PCR) Not detected B. pertussis DNA (PCR) Not detected B.parapertussis DNA PCR Not detected Coronavirus OC43 (PCR) Not detected Coronavirus HKU1 (PCR) Not detected Coronavirus 229E (PCR) Not detected SARS-CoV-2 (PCR) Not detected Coronavirus NL63 (PCR) Not detected Human Metapneumovir PCR Not detected Influenza Type A (PCR) Not detected Influenza Type B (PCR) Not detected M. pneumoniae (PCR) Not detected Parainfluenza 1 (PCR) Not detected Parainfluenza 2 (PCR) Not detected Parainfluenza 3 (PCR) Not detected Parainfluenza 4 (PCR) Not detected RSV (PCR) Not detected Entero/Rhino (PCR) Not detected PFSH Medical History Shoulder pain (~2015) History of colon polyps Surgical History Anesthesia History of tonsillectomy (~1957) History of removal of cyst (~1973) History of colonoscopy (~2014) History of shoulder surgery (~04/2017) Family History Father Brain aneurysm Mother Diabetes mellitus Hypertension Social History household members: spouse Smoking Status: Former smoker Tobacco: How many years used: 25 alcohol intake: former substance use type: does not use during the past year weight has: decreased > 10 lbs well-balanced diet: daily or most days Type(s) of exercise: walking frequency: daily duration: 15-30 minutes/day Assessment & Plan Assessment & Plan narrative: 69-year-old male with hypertension, hyperlipidemia admitted for CAP in the setting of failed outpatient treatment. #CAP #cough Persistent, worsening cough x2 weeks with new fever and leukocytosis. Serial CXR over past 3 days demonstrate progressive bilateral infiltrates consistent with pneumonia. Likely bacterial CAP given negative viral panel. -ceftriaxone 1g IV daily (04/11- ) -azithromycin 500 mg PO daily x3 days (04/11- ) -04/11 bcx: ngtd -albuterol nebs q4h prn -wean O2 as tolerated -antitussive prn #HTN -hold home lisinopril for soft BP #HLD -home atorvastatin Dispo: Home in 1-2 days pending wean from supplemental O2 Diet: General DVT ppx: SCDs Code: FULL Primary: Chris MDM: Deyanira Ayala (, ) COVID-19 COVID-19 status: Negative Result date/Date tested (Pos, Neg/Pending): 04/11/25 Time-Based Coding :: 20 minutes spent with patient and on the chart (including review of chart, obtaining history, exam, reviewing outside data, placing orders, documenting exam and treatment plan, and counseling patient) on 04/12/2025. PROFEE Car Servicer Document charge(s): Yes Charge Codes Subsequent inpatient/observation care: [id number]
[2025-04-12 08:43] VITALS: BP 104/59; PULSE 73; RESP 15; TEMP 36.3; O2SAT 92
--- NOTE | 2025-04-12 11:28 | CM.DPNOTE ---
DCP note LIEN SEARCHER reviewed EMR no new notes from provider yet today. remains on IV abx and 2ltrs O2 ( none at baseline) no new CM needs identified at this time P: anticipate home when medically stable with spouse and likely OP f/u. timeline unknown. will continue to follow closely in case any DCP needs should arise GIOVANY Torres
[2025-04-12 11:33] LABS: Procalcitonin 0.395 ng/mL (<0.5)
[2025-04-12 12:00] VITALS: BP 105/66; PULSE 73; RESP 15; TEMP 35.6; O2SAT 92
[2025-04-12 13:48] LABS: Add Manual Diff / Slide Review NO; Hematocrit 34.3 % (41-53); Hemoglobin 11.5 g/dL (13.5-17.5); Lymphocytes Absolute Auto 1300 /uL (1100-4500); Mean Corpuscular HGB Conc 33.7 % (30-36); Mean Corpuscular Hemoglobin 29.3 PG (26-34); Mean Corpuscular Volume 87.1 fL (80-100); Platelet Count 437 X10^3/uL (150-400)
[2025-04-12] MEDS: AZITHROMYCIN 250 MG TABLET 500 MG PO (15:31)
[2025-04-12] MEDS: guaiFENesin/DM 200 mg/20 mg/10 mL SYRUP PO (15:35)
[2025-04-12] MEDS: BENZONATATE 100 MG CAPSULE PO (17:43)
[2025-04-12 19:13] VITALS: PULSE 75; RESP 16; O2SAT 94
[2025-04-12 19:24] VITALS: BP 122/62; PULSE 73; RESP 18; TEMP 36.5; O2SAT 94
[2025-04-12] MEDS: ATORVASTATIN 20 MG TABLET 10 MG PO (21:03)
[2025-04-13] VITALS: BP 102/59; PULSE 79; TEMP 35.4; O2SAT 93
[2025-04-13] MEDS: ACETAMINOPHEN 325 MG TABLET 650 MG PO ×2 (01:42→08:51)
[2025-04-13] MEDS: BENZONATATE 100 MG CAPSULE PO ×3 (01:43→17:57)
[2025-04-13] MEDS: guaiFENesin/DM 200 mg/20 mg/10 mL SYRUP PO ×2 (01:45→13:53)
[2025-04-13 06:06] LABS: Blood Urea Nitrogen 18 mg/dL (9-20); Calcium 8.9 mg/dL (8.4-10.2); Carbon Dioxide 26 mmol/L (22-32); Chloride 101 mmol/L (98-107); Estimated Glomerular Filt Rate > 60 mL/min (>60); Glucose 96 mg/dL (70-99); HEMOLYSIS < 15 (0-50); Potassium 3.9 mmol/L (3.4-5.1); Sodium 135 mmol/L (137-145)
[2025-04-13 07:05] VITALS: O2SAT 93
[2025-04-13 07:55] LABS: Add Manual Diff / Slide Review NO; Hematocrit 34.0 % (41-53); Hemoglobin 11.4 g/dL (13.5-17.5); Lymphocytes Absolute Auto 1600 /uL (1100-4500); Mean Corpuscular HGB Conc 33.6 % (30-36); Mean Corpuscular Hemoglobin 29.1 PG (26-34); Mean Corpuscular Volume 86.7 fL (80-100); Platelet Count 441 X10^3/uL (150-400)
[2025-04-13 08:17] LABS: Procalcitonin 0.330 ng/mL (<0.5)
[2025-04-13] MEDS: SODIUM CHLORIDE 0.9% FLUSH 10 ML IV ×2 (08:52→20:49)
[2025-04-13 10:59] VITALS: PULSE 66; RESP 20; O2SAT 94
[2025-04-13] MEDS: ALBUTEROL 2.5 MG/3 ML NEB (ADULT) INH ×2 (10:59→19:16)
[2025-04-13 12:00] VITALS: BP 120/64; PULSE 69; RESP 16; TEMP 36.2; O2SAT 91
--- NOTE | 2025-04-13 13:00 | CM.DPNOTE ---
DCP note DIRECTOR CLINICAL INFORMATION SERVICES reviewed EMR Dr. Marmolejo had previously left life vest form in our CM folder for completion for pt. stating that the hospital agrees to pay $3675 for the DME. per provider in morning rounds , could dc today if vest secured. DIRECTOR CLINICAL INFORMATION SERVICES called life vest. their team reports we got this form because pt's claim was denied. data entry manager in charge of why that was denied is matthew rodriguez [phone]. DIRECTOR CLINICAL INFORMATION SERVICES lvm with Matthew. response pending. DIRECTOR CLINICAL INFORMATION SERVICES contacted data entry manager Falguni, advised to call admin director compensation for further guidance. Spoke with CFO Blancas, plans to come into hospital to review. DIRECTOR CLINICAL INFORMATION SERVICES emailed [employer] form. Per Swimming Pool Attendant later on in day, plans to keep pt for another few days. no longer plans to dc today. DIRECTOR CLINICAL INFORMATION SERVICES updated [employer] STRATEGIC INTELLIGENCE OFFICER that expedited request no longer needed. appreciate her willingness to follow and advise P: anticipate eventual dc home. BARRIER is life vest, f/u for reason for denial and coordinate DME from there likely Tuesday GIOVANY Torres
--- NOTE | 2025-04-13 13:12 | PM.PN.1 ---
Subjective Subjective Date Patient Seen: 04/13/25 Time Patient Seen: 13:12 Interval history: Chief complaint pneumonia Feeling a bit better today cough has decreased however he is still requiring oxygen has low energy easily depleted and not much appetite. Putative diagnosis remains bacterial pneumonia although I do consider COVID still possibility. Overall continued slow progress noted. Exam Vital Signs (past 8 hours): - 04/13/25 07:05 04/13/25 07:40 04/13/25 10:59 Temperature Pulse Rate 66 Respiratory Rate 20 Blood Pressure Pulse Oximetry 93 94 Oxygen Delivery Method Nasal Cannula Nasal Cannula Nasal Cannula Oxygen Flow Rate 2 2 04/13/25 12:00 Temperature 97.1 F L Pulse Rate 69 Respiratory Rate 16 Blood Pressure 120/64 Pulse Oximetry 91 Oxygen Delivery Method Oxygen Flow Rate 2 Fraction of Inspired Oxygen 28 SaO2/FiO2 Ratio 328 Oxygen Delivery Method Nasal Cannula Oxygen Flow Rate 2 Narrative Exam Narrative: Sitting in hospital bed with enjoying NCIS program Const Other: Well-developed well-nourished tall Resp Other: Bilateral crackles kind of panlobular worst on in inspiration with not much cough on 1.5 L via nasal cannula Cardio Other: Mildly elevated rate normal rhythm S1-S2 no pedal edema GI Other: Soft nontender nondistended active bowel sounds Neuro Other: Alert awake active moving all limbs Objective Labs 04/13/25 05:35 04/13/25 05:35 Labs: Laboratory Results - last 24 hr 04/12/25 04/13/25 13:40 05:35 WBC 16.8 H 14.6 H RBC 3.94 L 3.92 L Hgb 11.5 L 11.4 L Hct 34.3 L 34.0 L MCV 87.1 86.7 MCH 29.3 29.1 MCHC 33.7 33.6 RDW 13.6 13.7 Plt Count 437 H 441 H Neut % (Auto) 80.8 H 75.3 H Lymph % (Auto) 7.5 L 11.2 L [place] % (Auto) 9.9 10.9 Eos % (Auto) 1.5 L 1.9 L Baso % (Auto) 0.3 0.7 Neut # (Auto) 51423 H 66162 H Lymph # (Auto) 1300 1600 [place] # (Auto) 1700 H 1600 H Eos # (Auto) 300 300 Baso # (Auto) 0 100 Sodium 135 L Potassium 3.9 Chloride 101 Carbon Dioxide 26 BUN 18 Creatinine 0.91 Estimated GFR > 60 BUN/Creatinine Ratio 19.8 Glucose 96 Calcium 8.9 Procalcitonin 0.330 PFSH Medical History Shoulder pain (~2015) History of colon polyps Surgical History Anesthesia History of tonsillectomy (~1957) History of removal of cyst (~1973) History of colonoscopy (~2014) History of shoulder surgery (~04/2017) Family History Father Brain aneurysm Mother Diabetes mellitus Hypertension Social History household members: spouse Smoking Status: Former smoker Tobacco: How many years used: 25 alcohol intake: former substance use type: does not use during the past year weight has: decreased > 10 lbs well-balanced diet: daily or most days Type(s) of exercise: walking frequency: daily duration: 15-30 minutes/day Assessment & Plan Assessment & Plan narrative: #CAP #cough Improving slightly still requiring oxygen continue antibiotics and as needed albuterol look to wean O2 as tolerated with as needed antitussive #HTN hold home lisinopril for soft BP look to resume on discharge #HLD Stable continue home atorvastatin Dispo: Home in 1-2 days pending wean from supplemental O2 Diet: General DVT ppx: SCDs Code: FULL Primary: Chris MDM: Deyanira Jamie (, ) Time-Based Coding :: [TOTAL MINUTES] spent with patient and on the chart (including review of chart, obtaining history, exam, reviewing outside data, placing orders, documenting exam and treatment plan, and counseling patient) on [DATE].
[2025-04-13] MEDS: AZITHROMYCIN 250 MG TABLET 500 MG PO (13:53)
--- NOTE | 2025-04-13 14:54 | CM.DPNOTE ---
DCP note SOFTLINES SUPERVISOR reviewed EMR per chart, pt remains on 2ltrs O2. per [place], will remain here another day or so. continue IV abx and will continue to wean O2. P: dc home with partner when off O2/finish IV abx. CM team will continue to follow closely in case any DCP needs arise GIOVANY Torres
[2025-04-13 19:17] VITALS: PULSE 78; RESP 18; O2SAT 92
[2025-04-13 20:00] VITALS: BP 130/66; PULSE 75; RESP 20; TEMP 36.4; O2SAT 98
[2025-04-13] MEDS: ATORVASTATIN 20 MG TABLET 10 MG PO (20:49)
[2025-04-14 02:00] VITALS: BP 111/60; PULSE 66; RESP 17; TEMP 36.1; O2SAT 94
[2025-04-14 05:51] LABS: Blood Urea Nitrogen 19 mg/dL (9-20); Calcium 8.7 mg/dL (8.4-10.2); Carbon Dioxide 28 mmol/L (22-32); Chloride 100 mmol/L (98-107); Estimated Glomerular Filt Rate > 60 mL/min (>60); Glucose 94 mg/dL (70-99); HEMOLYSIS < 15 (0-50); Potassium 4.1 mmol/L (3.4-5.1); Sodium 134 mmol/L (137-145)
[2025-04-14] MEDS: SODIUM CHLORIDE 0.9% FLUSH 10 ML IV ×2 (08:57→21:00)
[2025-04-14 08:59] VITALS: O2SAT 94
[2025-04-14] MEDS: ALBUTEROL 2.5 MG/3 ML NEB (ADULT) INH ×2 (09:39→18:47)
[2025-04-14 09:41] VITALS: PULSE 68; RESP 18; O2SAT 97
--- NOTE | 2025-04-14 10:17 | PM.PN.1 ---
Subjective Subjective Date Patient Seen: 04/14/25 Time Patient Seen: 10:20 Interval history: Chief complaint pneumonia hypoxia Patient remains mildly oxygen dependent 1 1-2 L via nasal cannula otherwise he desats below 88. He is working with RT getting DuoNeb treatments still has very easily triggered cough slightly improved score on incentive spirometer day up to able to get up to 12 50 cc. Easily triggered dry coughing jags. Appetite slightly. Still a lot of crackles on auscultation. We will try to modify the antibiotics course of azithromycin and and codeine cough syrup for cough control encourage continued incentive spirometer use as tolerated. Exam Vital Signs (past 8 hours): - 04/14/25 08:59 04/14/25 09:41 Pulse Rate 68 Respiratory Rate 18 Pulse Oximetry 94 97 Oxygen Delivery Method Nasal Cannula Nasal Cannula Oxygen Flow Rate 2 2 Fraction of Inspired Oxygen 28 SaO2/FiO2 Ratio 328 Oxygen Delivery Method Nasal Cannula Oxygen Flow Rate 2 Narrative Exam Narrative: Sitting up in chair watching TV Resp Other: Global crackles worst and left lower quadrant unable to move much air with 1.5 L via nasal cannula MAC score on incentive spirometer is 12 50 cc Cardio Other: regular rate, s1/s2 GI Other: soft nontender active bowel sounds Neuro Other: alert awake oriented times 3 moving all limbs Objective Labs 04/13/25 05:35 04/14/25 05:14 Labs: Laboratory Results - last 24 hr 04/14/25 05:14 Sodium 134 L Potassium 4.1 Chloride 100 Carbon Dioxide 28 BUN 19 Creatinine 0.98 Estimated GFR > 60 BUN/Creatinine Ratio 19.4 Glucose 94 Calcium 8.7 [facility] Medical History Shoulder pain (~2015) History of colon polyps Surgical History Anesthesia History of tonsillectomy (~1957) History of removal of cyst (~1973) History of colonoscopy (~2014) History of shoulder surgery (~04/2017) Family History Father Brain aneurysm Mother Diabetes mellitus Hypertension Social History household members: spouse Smoking Status: Former smoker Tobacco: How many years used: 25 alcohol intake: former substance use type: does not use during the past year weight has: decreased > 10 lbs well-balanced diet: daily or most days Type(s) of exercise: walking frequency: daily duration: 15-30 minutes/day Assessment & Plan Assessment & Plan narrative: #CAP #cough Improving slightly still requiring oxygen we will change antibiotics to azithromycin and as needed albuterol look to wean O2 as tolerated with as needed antitussive He says using the breathing treatments does help somewhat however he still remains oxygen dependent suspect either atypical pneumonia or viral. I think a little diuresis may help also. #HTN hold home lisinopril for soft BP look to resume on discharge #HLD Stable continue home atorvastatin Dispo: Home in 1-2 days pending wean from supplemental O2 Diet: General DVT ppx: SCDs Code: FULL Primary: Chris MDM: Deyanira Ayala (, ) Time-Based Coding :: [TOTAL MINUTES] spent with patient and on the chart (including review of chart, obtaining history, exam, reviewing outside data, placing orders, documenting exam and treatment plan, and counseling patient) on [DATE].
[2025-04-14] MEDS: FUROSEMIDE 40 MG/4 ML VIAL IV (10:50)
[2025-04-14] MEDS: CODEINE/guaiFENesin LIQUID 5 ML UDC 10 ML PO (10:50)
[2025-04-14] MEDS: BENZONATATE 100 MG CAPSULE PO (15:15)
[2025-04-14 15:18] VITALS: BP 106/56; PULSE 84; RESP 17; TEMP 36.3; O2SAT 94
[2025-04-14 18:47] VITALS: PULSE 81; RESP 18; O2SAT 93
[2025-04-14 21:00] VITALS: BP 107/63; PULSE 69; RESP 18; TEMP 36.4; O2SAT 94
[2025-04-14] MEDS: ATORVASTATIN 20 MG TABLET 10 MG PO (21:00)
[2025-04-15 03:00] VITALS: BP 98/60; PULSE 73; RESP 20; TEMP 36.7; O2SAT 95
[2025-04-15] MEDS: ACETAMINOPHEN 325 MG TABLET 650 MG PO (05:12)
[2025-04-15 08:00] VITALS: BP 117/66; PULSE 68; RESP 15; TEMP 35.9; O2SAT 90
--- NOTE | 2025-04-15 08:21 | PM.PN.IH.1 ---
Subjective Subjective Date Patient Seen: 04/15/25 Time Patient Seen: 08:21 Interval history: 69-year-old male admitted several days ago with pneumonia symptoms including fever cough shortness of breath and hypoxia Fever has disappeared. He was hypoxic and persists although has a very small oxygen requirement at this point. He had a bit of leukocytosis peaking at 20.7, improved to 14.6 when last checked 2 days ago. Denies any sense of constriction tightness in the chest wheezing. Still has coughing jags that can go on for hours Does feel better but does not feel like he is anything back to baseline. Baseline is very good health for a 69-year-old minimal if any medical problems. No pre-existing pulmonary symptoms whatsoever. Quit smoking at least 20 years ago and no respiratory symptoms in the recent past Has been on ceftriaxone since admission, azithromycin as well, although last dose of azithromycin was yesterday, having completed 3 days plus his outpatient course, since this started as an outpatient he was treated via walk-in clinic Exam Vital Signs (past 8 hours): - 04/15/25 03:00 Temperature 98.1 F Pulse Rate 73 Respiratory Rate 20 Blood Pressure 98/60 Pulse Oximetry 95 Oxygen Flow Rate 1 Fraction of Inspired Oxygen 28 SaO2/FiO2 Ratio 328 Oxygen Delivery Method Nasal Cannula Oxygen Flow Rate 1 Narrative Exam Narrative: Lungs-crackles at the bases that are pain inspiratory and expiratory somewhat more prominent at the base than superiorly but also present in superior lung gaspar, no wheezes, good breath sounds Objective Labs 04/13/25 05:35 04/14/25 05:14 [facility] Medical History Shoulder pain (~2015) History of colon polyps Surgical History Anesthesia History of tonsillectomy (~1957) History of removal of cyst (~1973) History of colonoscopy (~2014) History of shoulder surgery (~04/2017) Family History Father Brain aneurysm Mother Diabetes mellitus Hypertension Social History household members: spouse Smoking Status: Former smoker Tobacco: How many years used: 25 alcohol intake: former substance use type: does not use during the past year weight has: decreased > 10 lbs well-balanced diet: daily or most days Type(s) of exercise: walking frequency: daily duration: 15-30 minutes/day Assessment & Plan Assessment & Plan narrative: 1. Community-acquired pneumonia-reviewing his chest x-ray etcetera this does appear to be a viral pneumonia given its pattern at least to me. I know his initial serologies were negative for any of the usual viruses we can test for. He has completed courses of oral and now parenteral antibiotics without dramatic improvement which would argue against this being bacterial pneumonia as well. No pre-existing lung condition such as COPD etcetera. I do not believe patient needs any additional antibiotic therapy at this time beyond the ceftriaxone which he will complete later this week Continue with oxygen replacement therapy and supportive care. Will evaluate for home oxygen therapy may require additional time at home for evaluation Consider CT scan versus bronchoscopy if fails to improve over time. Also consider referral to Pulmonary Medicine if fails to improve 2. Hyperlipidemia-continues on atorvastatin 3. Hypertension-blood pressure remains borderline low at 98 when most recently checked in the computer. Continue off lisinopril for now Overall hopefully patient will continue to improve slowly and we can sent home with or without home oxygen and consider outpatient evaluations as above if fails to completely improve in a reasonable timeframe. Time-Based Coding :: [TOTAL MINUTES] spent with patient and on the chart (including review of chart, obtaining history, exam, reviewing outside data, placing orders, documenting exam and treatment plan, and counseling patient) on [DATE]. PROFEE Continuous Weld Pipe Mill Supervisor Document charge(s): Yes Charge Codes Subsequent inpatient/observation care: [id number]
[2025-04-15] MEDS: SODIUM CHLORIDE 0.9% FLUSH 10 ML IV (09:36)
[2025-04-15 12:00] VITALS: BP 141/67; PULSE 64; RESP 16; TEMP 35.8; O2SAT 91
[2025-04-15] MEDS: guaiFENesin/DM 200 mg/20 mg/10 mL SYRUP PO (12:35)
[2025-04-15] MEDS: BENZONATATE 100 MG CAPSULE PO (12:35)
--- NOTE | 2025-04-15 13:38 | P.DS_ITS ---
History of Present Illness History of Present Illness Date Patient Seen: 04/15/25 Time Patient Seen: 13:38 Chief complaint: pneumonia Narrative: 69-year-old male with hypertension, hyperlipidemia presenting to ER for ongoing cough and shortness of breath. Initially seen 1 week ago at [facility] for cough, given prescription for azithromycin. Presented to ER on 04/09 with continued cough, CXR demonstrated progressive infiltrates without increased O2 requirement. Was advised to stop azithromycin and was prescribed new course of Augmentin with doxycycline. Re-presented to ER 04/10 with continued cough, fever to 102? F. ER evaluation notable for borderline tachycardia, variable O2 sat 87-96% on room air, WBC 20.7 with neutrophilia, hemoglobin 11.8, platelets 441, procalcitonin 0.473, lactate 0.8; remainder of CBC, CMP, SARS-CoV-2, influenza, RSV testing negative. CXR showed progressive bilateral pulmonary infiltrates. Admitted for IV antibiotics and respiratory support. {from Dr. Perez's H&P 04/11/2025} Discharge Providers Provider Date of admission: 04/11/25 02:58 Discharge Date: 04/15/25 Primary care physician: Nato Perez MD Discharge provider: Gwyn Peterson MD Summary Hospital Course Discharge Diagnosis: 1. Community-acquired pneumonia, probably viral 2. Acute respiratory failure with hypoxia 3. Hypertension 4. Hyperlipidemia Hospital Course: As above patient was admitted to the hospital. He was placed on parental antibiotics including ceftriaxone. He did have a very small oxygen requirement with the noted hypoxia Over the course of several days patient is slowly but surely improved. He eventually lost his need for supplemental oxygen although still mildly hypoxic. His fever curve declined and 4 48 hours prior to discharge had no additional fever Patient completed a course of azithromycin while hospitalized and several days of ceftriaxone. Based on appearance of his chest x-ray was felt as though this was most likely a viral pneumonia despite the negative serologies Therefore when patient's oxygen requirement resolved he was felt to be stable to return home His blood pressure was somewhat soft during this hospitalization so his lisinopril was held and will continue to be held until he is seen as an outpatient by his PCP Status at Discharge Cognitive/behavioral status at discharge: oriented Functional status at discharge: independent ambulation Overall status at discharge: patient is progressing back to baseline Time Spent with Patient Time spent: Less than 30 minutes Exam Vital Signs (past 8 hours): - 04/15/25 08:00 04/15/25 08:15 04/15/25 12:00 Temperature 96.7 F L 96.5 F L Pulse Rate 68 64 Respiratory Rate 15 16 Blood Pressure 117/66 141/67 H Pulse Oximetry 90 L 91 Oxygen Delivery Method Room Air Oxygen Flow Rate 0 0 Fraction of Inspired Oxygen 28 SaO2/FiO2 Ratio 328 Oxygen Delivery Method Room Air Oxygen Flow Rate 0 Objective Labs 04/13/25 05:35 04/14/25 05:14 PFS Medical History Shoulder pain (~2015) History of colon polyps Surgical History Anesthesia History of tonsillectomy (~1957) History of removal of cyst (~1973) History of colonoscopy (~2014) History of shoulder surgery (~04/2017) Family History Father Brain aneurysm Mother Diabetes mellitus Hypertension Social History household members: spouse Smoking Status: Former smoker Tobacco: How many years used: 25 alcohol intake: former substance use type: does not use during the past year weight has: decreased > 10 lbs well-balanced diet: daily or most days Type(s) of exercise: walking frequency: daily duration: 15-30 minutes/day Discharge Assessment & Plan Assessment and Plan Plan of Treatment: Continue to monitor patient's respiratory status as he resolves his presumed viral pneumonia Monitor blood pressure as an outpatient and resume lisinopril presumably when fully recovered from his pneumonia Discharge Plan Discharge Plan Patient Disposition: Home Discharge orders & Medications Prescriptions: Continued atorvastatin [Lipitor] 10 mg tablet 10 mg PO HS Qty: 90 3RF benzonatate 200 mg capsule 200 mg PO BID PRN (Reason: cough) Qty: 28 0RF Discontinued lisinopril 20 mg tablet 20 mg PO DAILY Qty: 90 3RF hydrocodone-homatropine [Hycodan] 5-1.5 mg/5 mL (5 mL) solution 5 ml PO Q6H PRN (Reason: cough) 3 Days Qty: 60 0RF doxycycline hyclate 100 mg capsule 100 mg PO BID 7 Days Qty: 14 0RF ondansetron 4 mg tablet,disintegrating 4 mg PO Q8H PRN (Reason: nausea and vomiting) Qty: 14 0RF amoxicillin-pot clavulanate 875-125 mg tablet 1 tab PO BID 7 Days Qty: 14 0RF Follow up/Referrals: Nato Perez MD [Primary Care Provider, [facility]] - 1 Week Discharge Health Status Multidrug resistant organism: No MDRO Diet/Activity/Treatments Diet: Diet as Tolerated Visit Report/Discharge Packet Instructions: DI for Pneumonia -- Adult, DI for Hypoxia Stand Alone Forms: Congestive Heart Failure, Patient Portal/API, Stroke Signs & Symptoms Discharge Data Primary Care Provider: Nato Perez PROFEE Charge Codes Discharge inpatient/observation: [id number]
--- NOTE | 2025-04-15 15:08 | CM.DPNOTE ---
DCP note FLITCH HANGER reviewed EMR per provider, cleared to dc once able to be weaned off oxygen. per RT, pt stable on room air, ambulated around the room without destating. FLITCH HANGER updated provider. provider placed dc orders. FLITCH HANGER met with pt in room. pt agreeable to dc. denies any DCP/CM needs. will call spouse to come pick him up P: dc today home with spouse and no CM needs. CM team will continue to follow as needed GIOVANY Torres
[2025-04-15 15:19] VITALS: BP 139/72; PULSE 75; RESP 17; TEMP 36.4; O2SAT 93
== END 2025-04-15 16:27 | disposition home or self-care (01) | DRG 193 ==
LOC: ED 04-11 02:50 → AC 04-11 02:59
PROVIDERS: Admitting Provider Family Medicine; Emergency Provider Emergency Medicine; PCP Family Medicine; Referring Provider Emergency Medicine; Visit Provider Family Medicine
DX: J18.9 Pneumonia, unspecified organism (principal); J96.01 Acute respiratory failure with hypoxia; I10 Essential (primary) hypertension; E78.5 Hyperlipidemia, unspecified; Z87.891 Personal history of nicotine dependence
CPT/HCPCS: 36415; 71046; 80048; 80053; 83605; 84145; 85025; 87040; 87633; 87637; 94618; 94640; 94760; 94762; 96365; 99222; 99232; 99238; 99283; 99285; J0696; J1938; J7050; J7613

== ENCOUNTER 2025-04-18 09:36 | Inpatient (IN) | payer MEDICARE, OTHER, SELFPAY ==
[2025-04-16 13:22] VITALS: BMI 26.3
[2025-04-18] VITALS (69 sets, daily range): BP systolic 94–162; BP diastolic 51–81; PULSE 61–122; RESP 20–45; TEMP 35.8–37; O2SAT 35–100; BMI 26.2
--- NOTE | 2025-04-18 09:43 | DI.RAD.S_ITS ---
PROCEDURE: XR CHEST 1V INDICATIONS: Shortness of breath TECHNIQUE: One view of the chest was acquired. COMPARISON: [facility], , XR CHEST 2V, 04/10/2025, 23:06. [facility], CR, XR CHEST 2V, 04/09/2025, 13:28. FINDINGS: Surgical changes and devices: None. Lungs and pleura: Lungs are abnormal with an underlying chronic lung disease pattern, present bilaterally, but now there is a large right pneumothorax with mediastinal shift from right to left to a a moderate degree. No pleural effusions. Mediastinum: Mediastinal contours appear normal other than the mediastinal shift from right to left. Heart size is normal. Bones and chest wall: No suspicious bony lesions. Overlying soft tissues appear unremarkable. IMPRESSION: Chronic underlying lung disease with new finding of a large right pneumothorax with secondary moderate mediastinal shift from right to left. The emergency room was immediately called to confirm that the emergency room physician caring for the patient is aware of this finding. Dictated by: Brandin Henning M.D. on 04/18/2025 at 9:53 Approved by: Brandin Henning M.D. on 04/18/2025 at 9:56
--- NOTE | 2025-04-18 09:46 | EKG_ITS ---
[id number] [address] Test Date: 2025-04-18 Pat Name: Armando Ayala Department: Room: Gender: Male Card Player: : 1955 Requested By: Order Number: [id number] Reading MD: Gwyn Peterson MD Measurements Intervals [place] Rate: 115 P: 109 NE: 142 QRS: 6 QRSD: 88 T: 82 QT: 328 QTc: 453 Interpretive Statements Sinus tachycardia Nonspecific ST and T wave abnormality NO PRIOR TRACING Electronically Signed On 04-18-2025 12:00:23 PDT by Gwyn Peterson MD
--- NOTE | 2025-04-18 09:47 | ED.SOB ---
HPI - SOB/Dyspnea General Chief Complaint: Shortness of Breath/Dyspnea Stated Complaint: Can't get air. having a hard time breathing Time Seen by Provider: 04/18/25 09:38 History of Present Illness HPI Narrative: 69-year-old gentleman past medical history of hypertension, dyslipidemia, sacroiliac dysfunction, recently discharged with bilateral pneumonia community-acquired probably viral on 04/15/2025 presents with shortness of breath today found to have low O2 at home in the 30s brought in for further evaluation.. Other than what is stated 14 point review of system is negative. Related Data Previous Rx's ?Medication ?Instructions ?Recorded atorvastatin 10 mg tablet (Lipitor) 10 mg PO HS #90 tabs 06/20/24 benzonatate 200 mg capsule 200 mg PO BID PRN cough #28 caps 04/15/25 Allergies Allergy/AdvReac Type Severity Reaction Status Date / Time No Known Drug Allergies Allergy Verified 04/18/25 09:45 Review of Systems Review of Systems ROS Unobtainable: All systems reviewed & are unremarkable except as noted in HPI and below Patient History Medical History Shoulder pain (~2015) History of colon polyps Surgical History Anesthesia History of tonsillectomy (~1957) History of removal of cyst (~1973) History of colonoscopy (~2014) History of shoulder surgery (~04/2017) Family History Father Brain aneurysm Mother Diabetes mellitus Hypertension Social History household members: spouse Smoking Status: Unknown if ever smoked Tobacco: How many years used: 25 alcohol intake: former substance use type: does not use during the past year weight has: decreased > 10 lbs well-balanced diet: daily or most days Type(s) of exercise: walking frequency: daily duration: 15-30 minutes/day Exam Narrative Exam Narrative: GENERAL: [69] year old patient appears stated age. Well-developed patient, in mild distress. HEAD: Atraumatic. Normocephalic. EYES: Pupils equal round and reactive. Extraocular motions intact. No scleral icterus. No injection or drainage. ENT: Nose without bleeding, purulent drainage. Throat without erythema, tonsillar hypertrophy or exudate. Airway patent. NECK: Trachea midline. Non tender CARDIOVASCULAR: Regular rate and rhythm without murmurs, gallops, or rubs. RESPIRATORY: Decreased breath sounds in the right GASTROINTESTINAL: Abdomen soft, non-tender, nondistended. EXTREMITIES: No edema or joint tenderness. BACK: Nontender without deformity or crepitance. No flank tenderness. NEURO: AOx3. SKIN: No rash or erythema of visible areas Initial Vital Signs Initial Vital Signs: Vital Signs Pulse Rate 122 H 04/18/25 09:38 Respiratory Rate 45 H 04/18/25 09:38 Blood Pressure 143/80 H 04/18/25 09:38 Pulse Oximetry 35 L 04/18/25 09:38 Oxygen Delivery Method Room Air 04/18/25 09:38 Course Orders Ordered: ED Orders 04/18/25 09:43 XR chest 1V Stat EKG-12 Lead Stat RT Consult Eval and Treat STAT 04/18/25 09:45 Complete Blood Count AUTO DIFF Stat Comprehensive Metabolic Panel Stat Lactate (Lactic Acid) Stat NT-proBNP (BNP-Adult 18+) Stat Procalcitonin Stat Prothrombin Time INR Stat Troponin I Stat 04/18/25 10:01 VBG [Venous Blood Gas] STAT 04/18/25 10:08 XR chest 1V Stat 04/18/25 10:13 Venous Blood Gas Routine 04/18/25 10:14 CT chest wo con Stat 04/18/25 10:28 Blood Culture Stat 04/18/25 11:15 Urinalysis and Microscopic Stat 04/18/25 11:40 Trop I [Troponin I] Stat Lactated Ringer's (Lactated Ringers) 2,775.99 mls @ 925.33 mls/hr 30 ml/kg infuse over 3 hr (2775.99 ml) IV NOW ONE Stop: 04/18/25 13:54 Last Admin: 04/18/25 10:57 Dose: 925 mls/hr Documented By: RB Discontinued Medications Fentanyl (Fentanyl 100 Mcg/2 Ml Inj) 75 mcg IV NOW ONE Stop: 04/18/25 09:56 Last Admin: 04/18/25 10:17 Dose: 50 mcg Documented By: RB Levofloxacin (Levaquin) 750 mg in 150 mls @ 100 mls/hr IV NOW ONE Stop: 04/18/25 11:42 Last Infusion: 04/18/25 12:17 Dose: Infused Documented By: Admin: 04/18/25 10:47 Dose: 100 mls/hr Documented By: HAL Lidocaine HCl (Lidocaine 2% Inj Mdv 20ml) 10 ml INJ INTRA-OP ONE Stop: 04/18/25 09:50 Last Admin: 04/18/25 09:54 Dose: 10 ml Documented By: HAL Lidocaine HCl (Lidocaine 2% Inj Sdv 5ml) 10 ml INJ NOW ONE Stop: 04/18/25 10:01 Last Admin: 04/18/25 09:54 Dose: Not Given Documented By: HAL Vital Signs Vital signs: Vital Signs - 8 hr 04/18/25 09:38 04/18/25 09:40 04/18/25 09:50 Pulse Rate 122 H Respiratory Rate 45 H Blood Pressure 143/80 H 143/80 H 162/81 H Pulse Oximetry 35 L Oxygen Delivery Method Room Air Oxygen Flow Rate 04/18/25 09:50 04/18/25 09:55 04/18/25 09:55 Pulse Rate 116 H 112 H 102 H Respiratory Rate 35 H 40 H 38 H Blood Pressure Pulse Oximetry 81 L Oxygen Delivery Method Non -Rebreather Oxygen Flow Rate 04/18/25 10:00 04/18/25 10:00 04/18/25 10:05 Pulse Rate 106 H 101 H Respiratory Rate 37 H 31 H Blood Pressure 106/59 L Pulse Oximetry 79 L 83 L Oxygen Delivery Method Mechanical Ventilation Mechanical Ventilation Oxygen Flow Rate 04/18/25 10:05 04/18/25 10:10 04/18/25 10:10 Pulse Rate 93 H Respiratory Rate 33 H Blood Pressure 122/63 111/58 L Pulse Oximetry 91 Oxygen Delivery Method Non -Rebreather Oxygen Flow Rate 04/18/25 10:15 04/18/25 10:15 04/18/25 10:20 Pulse Rate 95 H 95 H Respiratory Rate 36 H 33 H Blood Pressure 112/57 L Pulse Oximetry 90 L Oxygen Delivery Method Non -Rebreather Oxygen Flow Rate 04/18/25 10:20 04/18/25 10:25 04/18/25 10:26 Pulse Rate 94 H 95 H Respiratory Rate 30 H 37 H Blood Pressure 117/57 L Pulse Oximetry 89 L 89 L Oxygen Delivery Method Non -Rebreather Oxygen Flow Rate 15 04/18/25 10:26 04/18/25 10:30 04/18/25 10:30 Pulse Rate 90 Respiratory Rate 34 H Blood Pressure 98/54 L 95/52 L Pulse Oximetry 91 Oxygen Delivery Method Non -Rebreather Oxygen Flow Rate 15 04/18/25 10:31 04/18/25 10:31 04/18/25 10:35 Pulse Rate 90 Respiratory Rate 35 H Blood Pressure 94/55 L 100/63 Pulse Oximetry 91 Oxygen Delivery Method Oxygen Flow Rate 04/18/25 10:35 04/18/25 10:40 04/18/25 10:40 Pulse Rate 92 H 95 H Respiratory Rate 38 H 32 H Blood Pressure 95/51 L Pulse Oximetry 91 91 Oxygen Delivery Method Non -Rebreather Oxygen Flow Rate 15 04/18/25 10:44 04/18/25 10:44 04/18/25 10:45 Pulse Rate 93 H 84 Respiratory Rate 32 H 31 H Blood Pressure 113/57 L Pulse Oximetry 91 93 Oxygen Delivery Method Oxygen Flow Rate 04/18/25 10:45 04/18/25 10:50 04/18/25 10:50 Pulse Rate 85 Respiratory Rate 40 H Blood Pressure 107/59 L 100/59 L Pulse Oximetry 90 L Oxygen Delivery Method Non -Rebreather Oxygen Flow Rate 15 04/18/25 10:55 04/18/25 10:55 04/18/25 11:00 Pulse Rate 83 Respiratory Rate 37 H Blood Pressure 94/56 L 97/53 L Pulse Oximetry 94 Oxygen Delivery Method Non -Rebreather Oxygen Flow Rate 15 04/18/25 11:00 04/18/25 11:05 04/18/25 11:06 Pulse Rate 82 86 90 Respiratory Rate 42 H 38 H 35 H Blood Pressure Pulse Oximetry 94 95 97 Oxygen Delivery Method Non -Rebreather Non -Rebreather Oxygen Flow Rate 15 15 04/18/25 11:06 04/18/25 11:10 04/18/25 11:10 Pulse Rate 84 Respiratory Rate 29 H Blood Pressure 110/63 96/54 L Pulse Oximetry Oxygen Delivery Method Oxygen Flow Rate 04/18/25 11:15 04/18/25 11:15 04/18/25 11:20 Pulse Rate 89 Respiratory Rate 29 H Blood Pressure 101/58 L 96/55 L Pulse Oximetry 97 Oxygen Delivery Method Non -Rebreather Oxygen Flow Rate 15 04/18/25 11:20 04/18/25 11:25 04/18/25 11:25 Pulse Rate 77 75 Respiratory Rate 28 H 29 H Blood Pressure 106/56 L Pulse Oximetry 98 97 Oxygen Delivery Method Non -Rebreather Non -Rebreather Oxygen Flow Rate 15 15 04/18/25 11:30 04/18/25 11:30 04/18/25 11:35 Pulse Rate 72 Respiratory Rate 27 H Blood Pressure 102/58 L 104/60 Pulse Oximetry 99 Oxygen Delivery Method Non -Rebreather Oxygen Flow Rate 15 04/18/25 11:35 04/18/25 11:36 04/18/25 11:38 Pulse Rate 72 71 73 Respiratory Rate 29 H 24 29 H Blood Pressure Pulse Oximetry 99 99 99 Oxygen Delivery Method Non -Rebreather Non -Rebreather Non -Rebreather Oxygen Flow Rate 12 12 12 MDM - SOB/Dyspnea Lab Data 04/18/25 09:45 04/18/25 09:45 Labs: Lab Results 04/18/25 04/18/25 04/18/25 Range/Units 09:45 10:13 11:15 WBC 31.6 H* (4.5-11.0) X10^3/uL RBC 4.40 L (4.5-5.9) X10^6/uL Hgb 12.7 L (13.5-17.5) g/dL Hct 38.8 L (41-53) % MCV 88.1 (80-100) fL MCH 28.8 (26-34) PG MCHC 32.7 (30-36) % RDW 13.6 (11.6-14.8) % Plt Count 612 H (150-400) X10^3/uL Neut % (Auto) Not Reportable Lymph % (Auto) Not Reportable Scott % (Auto) Not Reportable Eos % (Auto) Not Reportable Baso % (Auto) Not Reportable Lymph # (Auto) Not Reportable Scott # (Auto) Not Reportable Baso # (Auto) Not Reportable Total Counted 100 Seg Neutrophils % 85.0 H (38-70) % Lymphocytes % (Manual) 6.0 L (25-45) % Monocytes % (Manual) 9.0 (2-11) % Neutrophils # (Manual) 74924 H (8333-6322) /uL RBC Morphology Normal morphology PT 14.7 H (9.4-12.5) SECONDS INR 1.3 (0.9-1.3) VBG pH 7.34 (7.33-7.43) VBG pCO2 56.9 H (45-50) mmHg VBG pO2 21 L (35-45) mmHg VBG HCO3 31 H (24-28) mmol/L VBG Total CO2 30 H (24-29) mmol/L VBG O2 Saturation 31 L (70-75) % VBG Base Excess 3.4 (0-4) mmol/L Sodium 137 (137-145) mmol/L Potassium 4.1 (3.4-5.1) mmol/L Chloride 105 (98-107) mmol/L Carbon Dioxide 22 (22-32) mmol/L BUN 17 (9-20) mg/dL Creatinine 0.95 (0.66-1.25) mg/dL Estimated GFR > 60 (>60) mL/min BUN/Creatinine Ratio 17.9 (6-22) Glucose 179 H (70-99) mg/dL Lactate 5.0 H* (0.7-2.1) mmol/L Calcium 8.3 L (8.4-10.2) mg/dL Total Bilirubin 0.7 (0.2-1.3) mg/dL AST 47 (17-59) IU/L ALT 67 H (<50) IU/L Alkaline Phosphatase 112 (38-126) U/L Troponin I 0.039 H (0.01-0.034) ng/mL NT-Pro-B Natriuret Pep 510 H (<125) pg/mL Total Protein 6.7 (6.3-8.2) g/dL Albumin 3.4 L (3.5-5.0) g/dL Globulin 3.3 (1.7-4.1) g/dL Albumin/Globulin Ratio 1.0 (1.0-2.8) Procalcitonin 0.153 (<0.5) ng/mL Urine Color Yellow Urine Appearance Clear Urine pH 5.5 (4.5-8.0) Ur Specific [place] >=1.030 H (1.000-1.035) Urine Protein 1+ H (Negative) Urine Glucose (UA) Negative (Negative) g/dL Urine Ketones Negative (NEGATIVE) Urine Occult Blood Negative (Negative) Urine Nitrate Negative (Negative) Urine Bilirubin Negative (NEGATIVE) Urine Urobilinogen 1.0 (0.2) E.U./dL Ur Leukocyte Esterase Negative (NEGATIVE) Urine RBC 1-5/hpf (0-5/HPF) Urine WBC 1-5/hpf (0-5/HPF) Ur Squamous Epith Cells 0-1 /hpf (0-5/HPF) Urine Bacteria Occasional (0-1) (None) Hyaline Casts 0-1/lpf (None) Urine Mucus 2+ H (Negative) Ur Culture Indicated? Cult not indicated Vol Urine Centrifuged 10ml (spun) 04/18/25 Range/Units 11:40 WBC (4.5-11.0) X10^3/uL RBC (4.5-5.9) X10^6/uL Hgb (13.5-17.5) g/dL Hct (41-53) % MCV (80-100) fL MCH (26-34) PG MCHC (30-36) % RDW (11.6-14.8) % Plt Count (150-400) X10^3/uL Neut % (Auto) Lymph % (Auto) Scott % (Auto) Eos % (Auto) Baso % (Auto) Lymph # (Auto) Scott # (Auto) Baso # (Auto) Total Counted Seg Neutrophils % (38-70) % Lymphocytes % (Manual) (25-45) % Monocytes % (Manual) (2-11) % Neutrophils # (Manual) (9677-6531) /uL RBC Morphology PT (9.4-12.5) SECONDS INR (0.9-1.3) VBG pH (7.33-7.43) VBG pCO2 (45-50) mmHg VBG pO2 (35-45) mmHg VBG HCO3 (24-28) mmol/L VBG Total CO2 (24-29) mmol/L VBG O2 Saturation (70-75) % VBG Base Excess (0-4) mmol/L Sodium (137-145) mmol/L Potassium (3.4-5.1) mmol/L Chloride (98-107) mmol/L Carbon Dioxide (22-32) mmol/L BUN (9-20) mg/dL Creatinine (0.66-1.25) mg/dL Estimated GFR (>60) mL/min BUN/Creatinine Ratio (6-22) Glucose (70-99) mg/dL Lactate 1.5 (0.7-2.1) mmol/L Calcium (8.4-10.2) mg/dL Total Bilirubin (0.2-1.3) mg/dL AST (17-59) IU/L ALT (<50) IU/L Alkaline Phosphatase (38-126) U/L Troponin I 0.144 H* (0.01-0.034) ng/mL NT-Pro-B Natriuret Pep (<125) pg/mL Total Protein (6.3-8.2) g/dL Albumin (3.5-5.0) g/dL Globulin (1.7-4.1) g/dL Albumin/Globulin Ratio (1.0-2.8) Procalcitonin (<0.5) ng/mL Urine Color Urine Appearance Urine pH (4.5-8.0) Ur Specific [place] (1.000-1.035) Urine Protein (Negative) Urine Glucose (UA) (Negative) g/dL Urine Ketones (NEGATIVE) Urine Occult Blood (Negative) Urine Nitrate (Negative) Urine Bilirubin (NEGATIVE) Urine Urobilinogen (0.2) E.U./dL Ur Leukocyte Esterase (NEGATIVE) Urine RBC (0-5/HPF) Urine WBC (0-5/HPF) Ur Squamous Epith Cells (0-5/HPF) Urine Bacteria (None) Hyaline Casts (None) Urine Mucus (Negative) Ur Culture Indicated? Vol Urine Centrifuged ECG Data Interpretation: NSR HR 72 [place] 156 QRS [address]-t wave change Change from 10/05/19 [facility] Narrative Medical decision making narrative: Vital signs, nurse triage note, medication list, previous ER visits, and all imaging studies reviewed. Initial chest x-ray showed chronic underlying lung disease with new finding of a large right pneumothorax with secondary moderate spinal shift from right to left. Post chest tube placement showed interval placement of right-sided chest tube with small. right-sided pneumothorax remaining. CT chest showed right-sided chest tube place there is [id number] size pneumothorax which is is larger than the 1 on the previous plain film. Patchy bilateral pulmonary infiltrates are seen. Moderate to prominent coronary artery artery calcification. Dr. Garcia was initially called to place the chest tube and he is aware of the CT findings also at this time. Patient given fluids and Levaquin here. White count of 31.6 hemoglobin 12.7 platelets 612 INR 1.3 VBG 7.34 pCO2 56.9 PO2 21 bicarb 31 O2 sat of 31 sodium 137 potassium 4.1 chloride 105 CO2 22 BUN 17 creatinine 0.95 glucose 179 initial lactic acid 5.0 and after fluid resuscitation 1.5. Troponin initially 0.039 2nd set 0.144 BNP 510 procalcitonin 0.153 urine negative for UTI. Initial EKG shows sinus tachycardia HR 115 with no STT wave changes. Case d/w who has graciously accepted the patient for inpatient admission. Case d/w Dr.Fakhri kamaljit GATES at request of no bronchoscopy at this time scarring, and pneumonia seen and to manage pneumothorax at this time. Discharge Plan Departure Patient Disposition: Admitted As Inpatient Clinical Impression: Pneumothorax Qualifiers: Pneumothorax type: spontaneous, primary Qualified Code(s): J93.11 - Primary spontaneous pneumothorax Pneumonia Qualifiers: Laterality: bilateral Lung location: lower lobe of lung Admit Date/Time: 04/18/25 13:22
[2025-04-18 09:54] LABS: Hematocrit 38.8 % (41-53); Hemoglobin 12.7 g/dL (13.5-17.5); Mean Corpuscular HGB Conc 32.7 % (30-36); Mean Corpuscular Hemoglobin 28.8 PG (26-34); Mean Corpuscular Volume 88.1 fL (80-100); Platelet Count 612 X10^3/uL (150-400)
[2025-04-18] MEDS: LIDOCAINE 2% INJ MDV 20ML 10 ML INJ (09:54)
[2025-04-18 09:56] LABS: Add Manual Diff / Slide Review YES
[2025-04-18 10:05] LABS: INR 1.3 (0.9-1.3); Prothrombin Time 14.7 SECONDS (9.4-12.5)
--- NOTE | 2025-04-18 10:05 | PC.NURSE ---
Dr. Garcia at patient bedside placing chest tube.
[2025-04-18 10:06] LABS: Lymphocytes Percent Manual 6.0 % (25-45); Monocytes Percent Manual 9.0 % (2-11); Neutrophils Absolute Manual 26860 /uL (3000-5900); RBC Morphology Normal Morphology; Segmented Neutrophils Percent 85.0 % (38-70); Total Cells Counted 100
--- NOTE | 2025-04-18 10:08 | DI.RAD.S_ITS ---
PROCEDURE: XR CHEST 1V INDICATIONS: post chest tube placement TECHNIQUE: One view of the chest was acquired. COMPARISON: [facility], CR, XR CHEST 2V, 04/10/2025, 23:06. [facility], CR, XR CHEST 1V, 04/18/2025, 9:38. FINDINGS: Surgical changes and devices: A right-sided chest tube has been placed. Lungs and pleura: There is a small residual right-sided pneumothorax. Generalized underlying interstitial prominence can be seen. Low lung volumes are noted. This causes a crowded appearance to the lung markings and limits evaluation. Mediastinum: Mediastinal contours appear normal. Heart size is normal. Bones and chest wall: No suspicious bony lesions. Age-appropriate bony degenerative changes are seen. Overlying soft tissues appear unremarkable. IMPRESSION: Interval placement of a right-sided chest tube, with a small right-sided pneumothorax remaining. Low lung volumes with generalized interstitial prominence. Dictated by: Magdy Rizo M.D. on 04/18/2025 at 9:21 Approved by: Magdy Rizo M.D. on 04/18/2025 at 9:23
[2025-04-18 10:12] LABS: Alanine Aminotransferase 67 IU/L (<50); Albumin 3.4 g/dL (3.5-5.0); Albumin Globulin Ratio 1.0 (1.0-2.8); Alkaline Phosphatase 112 U/L (38-126); Blood Urea Nitrogen 17 mg/dL (9-20); Calcium 8.3 mg/dL (8.4-10.2); Carbon Dioxide 22 mmol/L (22-32); Chloride 105 mmol/L (98-107); Estimated Glomerular Filt Rate > 60 mL/min (>60); Globulin 3.3 g/dL (1.7-4.1); Glucose 179 mg/dL (70-99); HEMOLYSIS 28 (0-50); Potassium 4.1 mmol/L (3.4-5.1); Sodium 137 mmol/L (137-145); Total Protein 6.7 g/dL (6.3-8.2)
[2025-04-18 10:13] LABS: Lactate (Lactic Acid) 5.0 mmol/L (0.7-2.1)
--- NOTE | 2025-04-18 10:14 | DI.CT.S_ITS ---
PROCEDURE: CT CHEST WO CON INDICATIONS: Pneumothorax TECHNIQUE: Noncontrast 5 mm thick sections acquired from the pulmonary apices to the posterior costophrenic angles. 1 mm lung window, 5 mm thick coronal and sagittal and 7 mm axial MIP reformats were then acquired. For radiation dose reduction, the following was used: automated exposure control, adjustment of mA and/or kV according to patient size. COMPARISON: [facility], CR, XR CHEST 1V, 04/18/2025, 9:38. [facility], CR, XR CHEST 1V, 04/18/2025, 10:06. FINDINGS: Image quality: Diagnostic. Lower Neck: No enlarged lymph nodes. Thyroid: The thyroid is small in size. Axillae: No enlarged lymph nodes. Chest Wall: Unremarkable. Bones: Age-appropriate bony degenerative changes are seen. Lungs and Pleura: A right-sided chest tube is seen. There is a moderate right- sided pneumothorax, which is larger than on the most recent plain film. Patchy pulmonary infiltrates are seen. No pleural effusions are seen perineural left-sided pneumothorax. Heart: Heart size is normal. No pericardial effusion. Moderate to prominent coronary calcification can be seen. Thoracic Vessels: The aorta and pulmonary arteries demonstrate normal size. Mediastinum and Kathleen: No enlarged lymph nodes. Esophagus: No wall thickening. No hiatal hernia. Upper Abdomen: Visualized upper abdomen solid organs and bowel loops appear normal. IMPRESSION: A right-sided chest tube is seen in place. There is a moderate to large right- sided pneumothorax, which is larger than on the recent prior plain film. Patchy bilateral pulmonary infiltrates are seen. Additional findings: Moderate to prominent coronary artery calcification Note: Case discussed by telephone with Dr. Jones at 10:59 a.m. [place] time on April 18, 2025. Dictated by: Magdy Rizo M.D. on 04/18/2025 at 9:56 Approved by: Magdy Rizo M.D. on 04/18/2025 at 10:02
[2025-04-18 10:17] LABS: Base Excess VBG 3.4 mmol/L (0-4); HCO3 VBG 31 mmol/L (24-28); Oxygen Saturation VBG 31 % (70-75); PCO2 VBG 56.9 mmHg (45-50); PO2 VBG 21 mmHg (35-45); Total CO2 VBG 30 mmol/L (24-29); pH VBG 7.34 (7.33-7.43)
[2025-04-18] MEDS: fentaNYL 100 MCG/2 ML INJ 75 MCG IV (10:17)
[2025-04-18 10:23] LABS: NT-proBNP (BNP-Adult 18+) 510 pg/mL (<125); Troponin I 0.039 ng/mL (0.01-0.034)
[2025-04-18 10:30] LABS: Procalcitonin 0.153 ng/mL (<0.5)
--- NOTE | 2025-04-18 10:44 | P.CONS_ITS ---
History of Present Illness Consult details Date Patient Seen: 04/18/25 Time Patient Seen: 10:44 Chief complaint: Can't get air. having a hard time breathing Narrative: Lew is a 69-year-old man who presented to the emergency department this morning with several hours of shortness of breath. A chest x-ray demonstrated a large right-sided pneumothorax. He had recently had a viral pneumonia. No history of COPD or emphysema. He smoked previously but quit many years ago. I was called emergently to the ER for an emergent chest tube. It was reported to me that his oxygen saturation levels were below 40% in the ER. Meds Home Medications and Allergies Home Medications ?Medication ?Instructions ?Recorded ?Confirmed ?Type atorvastatin 10 mg tablet (Lipitor) 10 mg PO HS #90 ta bs 06/20/24 04/16/25 Rx benzonatate 200 mg capsule 200 mg PO BID PRN cough #28 caps 04/15/25 04/16/25 Rx Allergies Allergy/AdvReac Type Severity Reaction Status Date / Time No Known Drug Allergies Allergy Verified 04/18/25 09:45 Exam Vital Signs (past 8 hours): - 04/18/25 09:38 04/18/25 09:40 04/18/25 09:50 Pulse Rate 122 H Respiratory Rate 45 H Blood Pressure 143/80 H 143/80 H 162/81 H Pulse Oximetry 35 L Oxygen Delivery Method Room Air Oxygen Flow Rate 04/18/25 09:50 04/18/25 09:55 04/18/25 10:00 Pulse Rate 116 H 112 H 106 H Respiratory Rate 35 H 40 H 37 H Blood Pressure Pulse Oximetry 81 L 79 L Oxygen Delivery Method Non -Rebreather Mechanical Ventilation Oxygen Flow Rate 15 15 04/18/25 10:00 04/18/25 10:05 04/18/25 10:05 Pulse Rate 101 H Respiratory Rate 31 H Blood Pressure 106/59 L 122/63 Pulse Oximetry 83 L Oxygen Delivery Method Mechanical Ventilation Oxygen Flow Rate 04/18/25 10:10 04/18/25 10:10 04/18/25 10:15 Pulse Rate 93 H Respiratory Rate 33 H Blood Pressure 111/58 L 112/57 L Pulse Oximetry 91 Oxygen Delivery Method Non -Rebreather Oxygen Flow Rate 15 04/18/25 10:15 04/18/25 10:20 04/18/25 10:20 Pulse Rate 95 H 95 H Respiratory Rate 36 H 33 H Blood Pressure 117/57 L Pulse Oximetry 90 L Oxygen Delivery Method Non -Rebreather Oxygen Flow Rate 15 Oxygen Delivery Method Non -Rebreather Oxygen Flow Rate 15 Const General: anxious Orientation: alert and awake Resp Effort & Inspection: labored and tachypneic Objective Labs 04/18/25 09:45 04/18/25 09:45 Labs: Laboratory Results - last 24 hr 04/18/25 04/18/25 09:45 10:13 WBC 31.6 H* RBC 4.40 L Hgb 12.7 L Hct 38.8 L MCV 88.1 MCH 28.8 MCHC 32.7 RDW 13.6 Plt Count 612 H Neut % (Auto) Not Reportable Lymph % (Auto) Not Reportable [place] % (Auto) Not Reportable Eos % (Auto) Not Reportable Baso % (Auto) Not Reportable Lymph # (Auto) Not Reportable [place] # (Auto) Not Reportable Baso # (Auto) Not Reportable Total Counted 100 Seg Neutrophils % 85.0 H Lymphocytes % (Manual) 6.0 L Monocytes % (Manual) 9.0 Neutrophils # (Manual) 02973 H RBC Morphology Normal morphology PT 14.7 H INR 1.3 VBG pH 7.34 VBG pCO2 56.9 H VBG pO2 21 L VBG HCO3 31 H VBG Total CO2 30 H VBG O2 Saturation 31 L VBG Base Excess 3.4 Sodium 137 Potassium 4.1 Chloride 105 Carbon Dioxide 22 BUN 17 Creatinine 0.95 Estimated GFR > 60 BUN/Creatinine Ratio 17.9 Glucose 179 H Lactate 5.0 H* Calcium 8.3 L Total Bilirubin 0.7 AST 47 ALT 67 H Alkaline Phosphatase 112 Troponin I 0.039 H NT-Pro-B Natriuret Pep 510 H Total Protein 6.7 Albumin 3.4 L Globulin 3.3 Albumin/Globulin Ratio 1.0 Procalcitonin 0.153 PFSH Medical History Shoulder pain (~2015) History of colon polyps Surgical History Anesthesia History of tonsillectomy (~1957) History of removal of cyst (~1973) History of colonoscopy (~2014) History of shoulder surgery (~04/2017) Family History Father Brain aneurysm Mother Diabetes mellitus Hypertension Social History household members: spouse Tobacco & Substance Use Smoking Status: Unknown if ever smoked Tobacco: How many years used: 25 alcohol intake: former substance use type: does not use Diet and Exercise during the past year weight has: decreased > 10 lbs well-balanced diet: daily or most days Type(s) of exercise: walking frequency: daily duration: 15-30 minutes/day Assessment & Plan Assessment and plan (1) Pneumothorax on right: Status: Acute Plan I reviewed the chest x-ray which showed the large right-sided pneumothorax and explained to Lew in his that he needed an emergent chest tube. Senna procedure note for details. A 20 [place]e chest tube was placed in the right mid axillary line. He reported improvement in symptoms in his oxygen levels came up to the 90s. There was a continuous air leak through the water seal chamber. I recommended we perform a CT scan to rule out a ruptured bleb or some other pulmonary abnormality that would require a higher level of care. If none is seen then he should be admitted to the medicine service and I will follow along for chest tube management. Time-Based Coding :: [TOTAL MINUTES] spent with patient and on the chart (including review of chart, obtaining history, exam, reviewing outside data, placing orders, documenting exam and treatment plan, and counseling patient) on [DATE]. PROFEE Charge Codes Inpatient or Observation consultation: [id number]
--- NOTE | 2025-04-18 10:48 | PM.OP.1 ---
Operative Date/Time/Diagnoses Date of procedure: 04/18/25 Time of procedure: 10:08 Pre-op diagnosis: Right-sided pneumothorax Post-op diagnosis: same Procedure & Clinicians Procedure: Right tube thoracostomy Same procedure(s) as scheduled: Yes Surgeon: Chema Garcia Assisted?: No Anesthesia Type: Local Operative Notes Findings: Right-sided pneumothorax Applied: none Estimated Blood Loss (mL): 5 Procedure in detail: I was called to the ER for an emergent right tube thoracostomy. I confirmed the right-sided pneumothorax and chest x-ray. A verbal explained to Lew in his the need for an emergent tube thoracostomy. 50 mcg of fentanyl were administered IV. The skin over the right lateral chest at the level of the fifth through ninth ribs in the mid axillary line was prepped and draped in the usual fashion. Roughly 8 mL of lidocaine were injected into the skin, subcutaneous adipose tissue and down against the rib and chest wall. 2 cm incision was created with a 15 blade scalpel. The tissue was spread slightly with a Peon clamp. A 20 [place] chest tube with a trocar was inserted above the eighth rib and directed superior and lateral. There was a engel of air and the chest tube was connected to the Pleur-evac chamber. The tube was secured to the skin with a 2-0 nylon stitch. A 2-0 silk U-stitch was placed in left untied to assist with future wound closure. A 3-0 Vicryl stitch was used to partially close the wound around the tube. Dressings were applied in the connections of the chest tube to the chamber were secured with tape. It appeared that there was a continuous blowing air leak. A follow up chest x-ray was ordered. EBL: 2 mL Complications: none Post-operative Condition: stable
[2025-04-18] MEDS: LACTATED RINGERS 925 ML IV (10:57)
[2025-04-18 11:25] LABS: Reflexed Lactate in 2 Hours Y
[2025-04-18 11:31] LABS: Appearance Urine UA CLEAR; Bilirubin Urine UA NEGATIVE (NEGATIVE); Color Urine UA YELLOW; Glucose Urine UA NEGATIVE (Negative); Ketones Urine UA NEGATIVE (NEGATIVE); Leukocyte Esterase Urine UA NEGATIVE (NEGATIVE); Nitrite Urine UA NEGATIVE (Negative); Occult Blood Urine UA NEGATIVE (Negative); Protein Urine UA 1+ (Negative); Specific Gravity Urine UA >=1.030 (1.000-1.035); Urobilinogen Urine UA 1.0 E.U./dL (0.2); pH Urine UA 5.5 (4.5-8.0)
--- NOTE | 2025-04-18 11:32 | RT ---
At bedside for Resp Distress pt, pt on 100% NRB Mask. MD at bedside with Rn, chest tube placement by MD without incident with relief noted per pt. Sao2 increased to 91% on nrb mask. VBG done and results to MD.
[2025-04-18 11:42] LABS: Culture Indicated Urine Cult Not Indicated
--- NOTE | 2025-04-18 11:58 | EKG_ITS ---
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
[2025-04-18 12:05] LABS: Lactate 2HR (Lactic Acid Rflx) 1.5 mmol/L (0.7-2.1)
[2025-04-18 12:18] LABS: Troponin I 0.144 ng/mL (0.01-0.034)
[2025-04-18] MEDS: ASPIRIN EC 81 MG TABLET PO (13:07)
--- NOTE | 2025-04-18 13:23 | P.HP_ITS ---
History of Present Illness History of Present Illness Date Patient Seen: 04/18/25 Chief complaint: Can't get air. having a hard time breathing Narrative: 69-year-old male with hypertension, hyperlipidemia presenting to ER for acutely worsening shortness of breath. Initially seen 2 weeks ago at [facility] for cough, given prescription for azithromycin. Presented to ER on 04/09 with continued cough, CXR demonstrated progressive infiltrates without increased O2 requirement. Was advised to stop azithromycin and was prescribed new course of Augmentin with doxycycline. Re-presented to ER 04/10 with continued cough, fever to 102? F. Recently admitted for suspected CAP vs viral pneumonia, during which he was treated with ceftriaxone x5 days. He was discharged 3 days ago before presenting again this morning. On arrival he was found to have O2 sat in 30s, CXR showed chronic underlying disease with new large right side pneumothorax with secondary signs of tension from right to left. Emergent chest tube placed by Dr. Garcia (on-call surgeon) with interval CXR showing improvement of pneumothorax. CT chest showed right- sided chest tube place, [id number] size pneumothorax which is is larger than the previous plain film. Patchy bilateral pulmonary infiltrates and moderate to prominent coronary artery artery calcifications also seen. Dr. Garcia was initially called to place the chest tube and he is aware of the CT findings. Initial vitals notable for T 96.4?, sinus tachycardia 122, initial O2 sat 35% on 15L non-rebreather which improved to 90s on NC after chest tube placement. WBC 31.6, hemoglobin 12.7, platelets 612, INR 1.3, VBG 7.34, pCO2 56.9, PO2 21, bicarb 31, sodium 137, potassium 4.1, chloride 105, CO2 22, BUN 17, creatinine 0.95, glucose 179, initial lactic acid 5.0 which improved to 1.5 after fluid resuscitation. Troponin initially 0.039, second set 0.144, BNP 510, procalcitonin 0.153, urine negative for UTI. Initial EKG showed sinus tachycardia HR [address] or T wave changes. Requested ER consult pulmonology regarding need to transfer for inpatient bronchoscopy and ID support for infection treatment. Dr. Jiménez reportedly consulted and felt no need for bronchoscopy at this time, scarring and pneumonia noted on CT and recommends managed pneumothorax with outpatient follow-up. Dr. Partida (cardiology) consulted from ER regarding elevated troponin, felt due to demand ischemia with no signs of ischemic changes on EKG. Admitted for IV antibiotics and respiratory support. [facility] Medical History Shoulder pain (~2015) History of colon polyps Surgical History Anesthesia History of tonsillectomy (~1957) History of removal of cyst (~1973) History of colonoscopy (~2014) History of shoulder surgery (~04/2017) Family History Father Brain aneurysm Mother Diabetes mellitus Hypertension Social History household members: spouse Smoking Status: Unknown if ever smoked Tobacco: How many years used: 25 alcohol intake: former substance use type: does not use during the past year weight has: decreased > 10 lbs well-balanced diet: daily or most days Type(s) of exercise: walking frequency: daily duration: 15-30 minutes/day Meds Home Medications and Allergies Home Medications ?Medication ?Instructions ?Recorded ?Confirmed ?Type atorvastatin 10 mg tablet (Lipitor) 10 mg PO HS #90 ta bs 06/20/24 04/16/25 Rx benzonatate 200 mg capsule 200 mg PO BID PRN cough #28 caps 04/15/25 04/16/25 Rx Allergies Allergy/AdvReac Type Severity Reaction Status Date / Time No Known Drug Allergies Allergy Verified 04/18/25 09:45 Exam Vital Signs (past 8 hours): - 04/18/25 09:38 04/18/25 09:40 04/18/25 09:50 Pulse Rate 122 H Respiratory Rate 45 H Blood Pressure 143/80 H 143/80 H 162/81 H Pulse Oximetry 35 L Oxygen Delivery Method Room Air Oxygen Flow Rate 04/18/25 09:50 04/18/25 09:55 04/18/25 09:55 Pulse Rate 116 H 112 H 102 H Respiratory Rate 35 H 40 H 38 H Blood Pressure Pulse Oximetry 81 L Oxygen Delivery Method Non -Rebreather Oxygen Flow Rate 15 04/18/25 10:00 04/18/25 10:00 04/18/25 10:05 Pulse Rate 106 H 101 H Respiratory Rate 37 H 31 H Blood Pressure 106/59 L Pulse Oximetry 79 L 83 L Oxygen Delivery Method Mechanical Ventilation Mechanical Ventilation Oxygen Flow Rate 15 04/18/25 10:05 04/18/25 10:10 04/18/25 10:10 Pulse Rate 93 H Respiratory Rate 33 H Blood Pressure 122/63 111/58 L Pulse Oximetry 91 Oxygen Delivery Method Non -Rebreather Oxygen Flow Rate 15 04/18/25 10:15 04/18/25 10:15 04/18/25 10:20 Pulse Rate 95 H 95 H Respiratory Rate 36 H 33 H Blood Pressure 112/57 L Pulse Oximetry 90 L Oxygen Delivery Method Non -Rebreather Oxygen Flow Rate 15 04/18/25 10:20 04/18/25 10:25 04/18/25 10:26 Pulse Rate 94 H 95 H Respiratory Rate 30 H 37 H Blood Pressure 117/57 L Pulse Oximetry 89 L 89 L Oxygen Delivery Method Non -Rebreather Oxygen Flow Rate 15 04/18/25 10:26 04/18/25 10:30 04/18/25 10:30 Pulse Rate 90 Respiratory Rate 34 H Blood Pressure 98/54 L 95/52 L Pulse Oximetry 91 Oxygen Delivery Method Non -Rebreather Oxygen Flow Rate 15 04/18/25 10:31 04/18/25 10:31 04/18/25 10:35 Pulse Rate 90 Respiratory Rate 35 H Blood Pressure 94/55 L 100/63 Pulse Oximetry 91 Oxygen Delivery Method Oxygen Flow Rate 04/18/25 10:35 04/18/25 10:40 04/18/25 10:40 Pulse Rate 92 H 95 H Respiratory Rate 38 H 32 H Blood Pressure 95/51 L Pulse Oximetry 91 91 Oxygen Delivery Method Non -Rebreather Oxygen Flow Rate 15 04/18/25 10:44 04/18/25 10:44 04/18/25 10:45 Pulse Rate 93 H 84 Respiratory Rate 32 H 31 H Blood Pressure 113/57 L Pulse Oximetry 91 93 Oxygen Delivery Method Oxygen Flow Rate 04/18/25 10:45 04/18/25 10:50 04/18/25 10:50 Pulse Rate 85 Respiratory Rate 40 H Blood Pressure 107/59 L 100/59 L Pulse Oximetry 90 L Oxygen Delivery Method Non -Rebreather Oxygen Flow Rate 15 04/18/25 10:55 04/18/25 10:55 04/18/25 11:00 Pulse Rate 83 Respiratory Rate 37 H Blood Pressure 94/56 L 97/53 L Pulse Oximetry 94 Oxygen Delivery Method Non -Rebreather Oxygen Flow Rate 15 04/18/25 11:00 04/18/25 11:05 04/18/25 11:06 Pulse Rate 82 86 90 Respiratory Rate 42 H 38 H 35 H Blood Pressure Pulse Oximetry 94 95 97 Oxygen Delivery Method Non -Rebreather Non -Rebreather Oxygen Flow Rate 15 15 04/18/25 11:06 04/18/25 11:10 04/18/25 11:10 Pulse Rate 84 Respiratory Rate 29 H Blood Pressure 110/63 96/54 L Pulse Oximetry Oxygen Delivery Method Oxygen Flow Rate 04/18/25 11:15 04/18/25 11:15 04/18/25 11:20 Pulse Rate 89 Respiratory Rate 29 H Blood Pressure 101/58 L 96/55 L Pulse Oximetry 97 Oxygen Delivery Method Non -Rebreather Oxygen Flow Rate 15 04/18/25 11:20 04/18/25 11:25 04/18/25 11:25 Pulse Rate 77 75 Respiratory Rate 28 H 29 H Blood Pressure 106/56 L Pulse Oximetry 98 97 Oxygen Delivery Method Non -Rebreather Non -Rebreather Oxygen Flow Rate 15 15 04/18/25 11:30 04/18/25 11:30 04/18/25 11:35 Pulse Rate 72 Respiratory Rate 27 H Blood Pressure 102/58 L 104/60 Pulse Oximetry 99 Oxygen Delivery Method Non -Rebreather Oxygen Flow Rate 15 04/18/25 11:35 04/18/25 11:36 04/18/25 11:38 Pulse Rate 72 71 73 Respiratory Rate 29 H 24 29 H Blood Pressure Pulse Oximetry 99 99 99 Oxygen Delivery Method Non -Rebreather Non -Rebreather Non -Rebreather Oxygen Flow Rate 12 12 12 04/18/25 11:40 04/18/25 11:40 04/18/25 11:45 Pulse Rate 72 69 Respiratory Rate 29 H 29 H Blood Pressure 108/63 Pulse Oximetry 100 98 Oxygen Delivery Method Non -Rebreather Oxygen Flow Rate 12 04/18/25 11:45 04/18/25 11:50 04/18/25 11:50 Pulse Rate 67 Respiratory Rate 24 Blood Pressure 105/64 104/65 Pulse Oximetry 98 Oxygen Delivery Method Oxygen Flow Rate 04/18/25 11:55 04/18/25 11:55 04/18/25 12:00 Pulse Rate 71 Respiratory Rate 26 H Blood Pressure 98/57 L 109/60 Pulse Oximetry 100 Oxygen Delivery Method Oxygen Flow Rate 04/18/25 12:00 04/18/25 12:05 04/18/25 12:10 Pulse Rate 69 67 Respiratory Rate 26 H 22 Blood Pressure 103/62 Pulse Oximetry 98 98 Oxygen Delivery Method Oxygen Flow Rate 04/18/25 12:10 04/18/25 12:15 04/18/25 12:15 Pulse Rate 67 Respiratory Rate 20 Blood Pressure 104/63 109/63 Pulse Oximetry 99 Oxygen Delivery Method Oxygen Flow Rate 04/18/25 12:20 04/18/25 12:20 04/18/25 12:25 Pulse Rate 66 68 Respiratory Rate 25 H 28 H Blood Pressure 107/63 Pulse Oximetry 99 99 Oxygen Delivery Method Oxygen Flow Rate 04/18/25 12:25 04/18/25 12:30 04/18/25 12:30 Pulse Rate 66 Respiratory Rate 28 H Blood Pressure 112/66 115/66 Pulse Oximetry 99 Oxygen Delivery Method Oxygen Flow Rate 04/18/25 12:35 04/18/25 12:35 Pulse Rate 65 Respiratory Rate 24 Blood Pressure 109/64 Pulse Oximetry 99 Oxygen Delivery Method Non -Rebreather Oxygen Flow Rate 12 Oxygen Delivery Method Non -Rebreather Oxygen Flow Rate 12 Narrative Exam Narrative: General: Pleasant, NAD HEENT: NC/AT, EOMI, moist membranes CV: RRR, normal S1-S2, no m/g/r Resp: Mild crackles in bilateral lower lobes, right side chest tube secured in place, comfortable WOB on 6 L NC Abd: Soft, NTND, +BS Ext: No edema Skin: No rash or lesions noted Neuro: A&O x3, moves all extremities, no focal deficits Objective Labs 04/18/25 20:37 04/18/25 20:37 Labs: Laboratory Results - last 24 hr 04/18/25 04/18/25 04/18/25 09:45 10:13 11:15 WBC 31.6 H* RBC 4.40 L Hgb 12.7 L Hct 38.8 L MCV 88.1 MCH 28.8 MCHC 32.7 RDW 13.6 Plt Count 612 H Neut % (Auto) Not Reportable Lymph % (Auto) Not Reportable [place] % (Auto) Not Reportable Eos % (Auto) Not Reportable Baso % (Auto) Not Reportable Lymph # (Auto) Not Reportable [place] # (Auto) Not Reportable Baso # (Auto) Not Reportable Total Counted 100 Seg Neutrophils % 85.0 H Lymphocytes % (Manual) 6.0 L Monocytes % (Manual) 9.0 Neutrophils # (Manual) 62382 H RBC Morphology Normal morphology PT 14.7 H INR 1.3 VBG pH 7.34 VBG pCO2 56.9 H VBG pO2 21 L VBG HCO3 31 H VBG Total CO2 30 H VBG O2 Saturation 31 L VBG Base Excess 3.4 Sodium 137 Potassium 4.1 Chloride 105 Carbon Dioxide 22 BUN 17 Creatinine 0.95 Estimated GFR > 60 BUN/Creatinine Ratio 17.9 Glucose 179 H Lactate 5.0 H* Calcium 8.3 L Total Bilirubin 0.7 AST 47 ALT 67 H Alkaline Phosphatase 112 Troponin I 0.039 H NT-Pro-B Natriuret Pep 510 H Total Protein 6.7 Albumin 3.4 L Globulin 3.3 Albumin/Globulin Ratio 1.0 Procalcitonin 0.153 Urine Color Yellow Urine Appearance Clear Urine pH 5.5 Ur Specific [place] >=1.030 H Urine Protein 1+ H Urine Glucose (UA) Negative Urine Ketones Negative Urine Occult Blood Negative Urine Nitrate Negative Urine Bilirubin Negative Urine Urobilinogen 1.0 Ur Leukocyte Esterase Negative Urine RBC 1-5/hpf Urine WBC 1-5/hpf Ur Squamous Epith Cells 0-1 /hpf Urine Bacteria Occasional (0-1) Hyaline Casts 0-1/lpf Urine Mucus 2+ H Ur Culture Indicated? Cult not indicated Vol Urine Centrifuged 10ml (spun) 04/18/25 11:40 WBC RBC Hgb Hct MCV MCH MCHC RDW Plt Count Neut % (Auto) Lymph % (Auto) [place] % (Auto) Eos % (Auto) Baso % (Auto) Lymph # (Auto) [place] # (Auto) Baso # (Auto) Total Counted Seg Neutrophils % Lymphocytes % (Manual) Monocytes % (Manual) Neutrophils # (Manual) RBC Morphology PT INR VBG pH VBG pCO2 VBG pO2 VBG HCO3 VBG Total CO2 VBG O2 Saturation VBG Base Excess Sodium Potassium Chloride Carbon Dioxide BUN Creatinine Estimated GFR BUN/Creatinine Ratio Glucose Lactate 1.5 Calcium Total Bilirubin AST ALT Alkaline Phosphatase Troponin I 0.144 H* NT-Pro-B Natriuret Pep Total Protein Albumin Globulin Albumin/Globulin Ratio Procalcitonin Urine Color Urine Appearance Urine pH Ur Specific [place] Urine Protein Urine Glucose (UA) Urine Ketones Urine Occult Blood Urine Nitrate Urine Bilirubin Urine Urobilinogen Ur Leukocyte Esterase Urine RBC Urine WBC Ur Squamous Epith Cells Urine Bacteria Hyaline Casts Urine Mucus Ur Culture Indicated? Vol Urine Centrifuged Assessment & Plan Assessment & Plan narrative: 69-year-old male with hypertension, hyperlipidemia admitted for pneumonia and right-sided pneumothorax in the setting of recent inpatient CAP treatment. #pneumonia #cough Persistent, worsening cough x3 weeks with new/worsening leukocytosis compared to recent discharge. -levaquin 750 mg daily (04/18- ) -pip-tazo q8h (04/18- ) -blood/sputum cultures -wean O2 as tolerated -antitussive prn #pneumothorax New right-sided pneumothorax, suspect due to persistent cough over past few weeks with acute worsening SOB leading to presentation this morning. Symptoms significantly improved with chest tube placement. -Dr. Garcia (surgery) consulting for chest tube management, appreciate recs -intermittent suction per surgery -monitor output #hypertension -hold home lisinopril for soft BP #hyperlipidemia -hold home atorvastatin Dispo: ICU Diet: General DVT ppx: SCDs Code: FULL Primary: Chris MDM: Deyanira Ayala (, ) COVID-19 COVID-19 status: Negative Result date/Date tested (Pos, Neg/Pending): 04/11/25 Time-Based Coding :: 65 minutes spent with patient and on the chart (including review of chart, obtaining history, exam, reviewing outside data, placing orders, documenting exam and treatment plan, and counseling patient) on 04/18/2025. PROFEE Gold Plater Document charge(s): Yes Charge Codes Critical Care: [id number]
[2025-04-18] MEDS: ACETAMINOPHEN 325 MG TABLET 650 MG PO (17:41)
[2025-04-18] MEDS: PIPERACILLIN/TAZO 4.5 GM in SODIUM CHLORIDE 0.9% 100 ML IV (17:41)
[2025-04-18] MEDS: SODIUM CHLORIDE 0.9% 1,000 ML 100 ML IV (17:41)
[2025-04-18 20:44] LABS: Add Manual Diff / Slide Review NO; Hematocrit 31.4 % (41-53); Hemoglobin 10.5 g/dL (13.5-17.5); Lymphocytes Absolute Auto 1400 /uL (1100-4500); Mean Corpuscular HGB Conc 33.6 % (30-36); Mean Corpuscular Hemoglobin 29.2 PG (26-34); Mean Corpuscular Volume 87.0 fL (80-100); Platelet Count 394 X10^3/uL (150-400)
[2025-04-18 20:56] LABS: Alanine Aminotransferase 52 IU/L (<50); Albumin 2.9 g/dL (3.5-5.0); Albumin Globulin Ratio 0.9 (1.0-2.8); Alkaline Phosphatase 93 U/L (38-126); Blood Urea Nitrogen 19 mg/dL (9-20); Calcium 8.6 mg/dL (8.4-10.2); Carbon Dioxide 26 mmol/L (22-32); Chloride 104 mmol/L (98-107); Estimated Glomerular Filt Rate > 60 mL/min (>60); Globulin 3.2 g/dL (1.7-4.1); Glucose 115 mg/dL (70-99); HEMOLYSIS < 15 (0-50); Potassium 4.3 mmol/L (3.4-5.1); Sodium 135 mmol/L (137-145); Total Protein 6.1 g/dL (6.3-8.2)
[2025-04-19] VITALS (9 sets, daily range): BP systolic 120–138; BP diastolic 69–78; PULSE 63–83; RESP 16–20; TEMP 35.9–37.1; O2SAT 93–97
[2025-04-19 00:21] LABS: Coronavirus NL 63 Not Detected (Not Detect); SARS- CoV-2 Not Detected (Not Detecte)
[2025-04-19] MEDS: PIPERACILLIN/TAZO 3.375 GM in SODIUM CHLORIDE 0.9% 100 ML IV ×3 (01:11→18:10)
[2025-04-19] MEDS: SODIUM CHLORIDE 0.9% 1,000 ML 100 ML IV ×2 (04:12→14:42)
[2025-04-19 06:18] LABS: Magnesium 2.0 mg/dL (1.6-2.3)
[2025-04-19] MEDS: ACETAMINOPHEN 325 MG TABLET 650 MG PO ×2 (06:27→10:17)
--- NOTE | 2025-04-19 08:00 | DI.RAD.S_ITS ---
PROCEDURE: XR CHEST 2V INDICATIONS: Pneumothorax w/chest tube TECHNIQUE: 2 views of the chest were acquired. COMPARISON: [facility], , XR CHEST 1V, 04/18/2025, 10:06. [facility], CR, XR CHEST 1V, 04/18/2025, 9:38. CT chest 04/18/2025. Chest x-ray one view 04/18/2025. FINDINGS: Surgical changes and devices: Chest tube in mid lung, lower than prior radiograph 04/18/2025. EKG artifact. Lungs and pleura: Mild increase in right apicle pneumothorax. Visualization of horizontal fissure. Bilateral patchy opacities. No focal pleural effusions. Mediastinum: Mediastinal contours are normal. Heart size is normal. Bones and chest wall: Degenerative changes revision lies throughout visualized thoracic spine. No suspicious bony abnormalities. Soft tissues appear unremarkable. IMPRESSION: Mild increase in right upper lobe pneumothorax. Right-sided chest tube has been pulled back. Stable bilateral pulmonary opacities. Dictated by: Sandy Toscano Jonathan Interpreted: Evan Cisse MD on 04/19/2025 at 10:23 Transcribed by: BRIGITTE on 04/19/2025 at 10:38 Approved by: Evan Cisse M.D. on 04/19/2025 at 11:33
--- NOTE | 2025-04-19 11:25 | PM.PN.IH.1 ---
Subjective Subjective Date Patient Seen: 04/19/25 Time Patient Seen: 11:25 Interval history: Feeling well Chest x-ray shows a persistent pneumothorax Chest tube is on suction Exam Vital Signs (past 8 hours): - 04/19/25 08:00 04/19/25 08:33 04/19/25 09:17 Temperature 98.5 F Pulse Rate 63 Respiratory Rate 18 Blood Pressure 120/71 Pulse Oximetry 96 97 Oxygen Delivery Method Nasal Cannula Nasal Cannula Oxygen Flow Rate 7 7 Fraction of Inspired Oxygen 48 Fraction of Inspired Oxygen 48 SaO2/FiO2 Ratio 202 Oxygen Delivery Method Nasal Cannula Oxygen Flow Rate 7 Narrative Exam Narrative: There is a persistent air leak on forced expiration Objective Labs 04/18/25 20:37 04/18/25 20:37 Labs: Laboratory Results - last 24 hr 04/18/25 04/18/25 04/18/25 11:15 11:40 20:37 WBC 16.6 H RBC 3.61 L Hgb 10.5 L Hct 31.4 L MCV 87.0 MCH 29.2 MCHC 33.6 RDW 13.7 Plt Count 394 Neut % (Auto) 81.4 H Lymph % (Auto) 8.4 L [place] % (Auto) 9.3 Eos % (Auto) 0.4 L Baso % (Auto) 0.5 Neut # (Auto) 43955 H Lymph # (Auto) 1400 [place] # (Auto) 1500 H Eos # (Auto) 100 Baso # (Auto) 100 Sodium 135 L Potassium 4.3 Chloride 104 Carbon Dioxide 26 BUN 19 Creatinine 0.93 Estimated GFR > 60 BUN/Creatinine Ratio 20.4 Glucose 115 H Lactate 1.5 Calcium 8.6 Magnesium Total Bilirubin 0.5 AST 32 ALT 52 H Alkaline Phosphatase 93 Troponin I 0.144 H* Total Protein 6.1 L Albumin 2.9 L Globulin 3.2 Albumin/Globulin Ratio 0.9 L Urine Color Yellow Urine Appearance Clear Urine pH 5.5 Ur Specific [place] >=1.030 H Urine Protein 1+ H Urine Glucose (UA) Negative Urine Ketones Negative Urine Occult Blood Negative Urine Nitrate Negative Urine Bilirubin Negative Urine Urobilinogen 1.0 Ur Leukocyte Esterase Negative Urine RBC 1-5/hpf Urine WBC 1-5/hpf Ur Squamous Epith Cells 0-1 /hpf Urine Bacteria Occasional (0-1) Hyaline Casts 0-1/lpf Urine Mucus 2+ H Ur Culture Indicated? Cult not indicated Vol Urine Centrifuged 10ml (spun) Chlamy pneumoniae PCR Adenovirus (PCR) B. pertussis DNA (PCR) B.parapertussis DNA PCR Coronavirus OC43 (PCR) Coronavirus HKU1 (PCR) Coronavirus 229E (PCR) SARS-CoV-2 (PCR) Coronavirus NL63 (PCR) Human Metapneumovir PCR Influenza Type A (PCR) Influenza Type B (PCR) M. pneumoniae (PCR) Parainfluenza 1 (PCR) Parainfluenza 2 (PCR) Parainfluenza 3 (PCR) Parainfluenza 4 (PCR) RSV (PCR) Entero/Rhino (PCR) 04/18/25 04/19/25 23:10 04:58 WBC RBC Hgb Hct MCV MCH MCHC RDW Plt Count Neut % (Auto) Lymph % (Auto) [place] % (Auto) Eos % (Auto) Baso % (Auto) Neut # (Auto) Lymph # (Auto) [place] # (Auto) Eos # (Auto) Baso # (Auto) Sodium Potassium Chloride Carbon Dioxide BUN Creatinine Estimated GFR BUN/Creatinine Ratio Glucose Lactate Calcium Magnesium 2.0 Total Bilirubin AST ALT Alkaline Phosphatase Troponin I Total Protein Albumin Globulin Albumin/Globulin Ratio Urine Color Urine Appearance Urine pH Ur Specific [place] Urine Protein Urine Glucose (UA) Urine Ketones Urine Occult Blood Urine Nitrate Urine Bilirubin Urine Urobilinogen Ur Leukocyte Esterase Urine RBC Urine WBC Ur Squamous Epith Cells Urine Bacteria Hyaline Casts Urine Mucus Ur Culture Indicated? Vol Urine Centrifuged Chlamy pneumoniae PCR Not detected Adenovirus (PCR) Not detected B. pertussis DNA (PCR) Not detected B.parapertussis DNA PCR Not detected Coronavirus OC43 (PCR) Not detected Coronavirus HKU1 (PCR) Not detected Coronavirus 229E (PCR) Not detected SARS-CoV-2 (PCR) Not detected Coronavirus NL63 (PCR) Not detected Human Metapneumovir PCR Not detected Influenza Type A (PCR) Not detected Influenza Type B (PCR) Not detected M. pneumoniae (PCR) Not detected Parainfluenza 1 (PCR) Not detected Parainfluenza 2 (PCR) Not detected Parainfluenza 3 (PCR) Not detected Parainfluenza 4 (PCR) Not detected RSV (PCR) Not detected Entero/Rhino (PCR) Not detected PFSH Medical History Shoulder pain (~2015) History of colon polyps Surgical History Anesthesia History of tonsillectomy (~1958) History of removal of cyst (~1973) History of colonoscopy (~2014) History of shoulder surgery (~04/2017) Family History Father Brain aneurysm Mother Diabetes mellitus Hypertension Social History household members: spouse and children Smoking Status: Former smoker Tobacco: How many years used: 25 alcohol intake: former substance use type: does not use during the past year weight has: decreased > 10 lbs well-balanced diet: daily or most days Type(s) of exercise: walking frequency: daily duration: 15-30 minutes/day Assessment & Plan Assessment and plan (1) Pneumothorax: Qualifiers: Pneumothorax type: spontaneous, primary Qualified Code(s): J93.11 - Primary spontaneous pneumothorax Status: Acute Plan Continue chest tube on suctioned If air leak does not seal off in another day or two he may need a transfer for a VATS for persistent air leak Time-Based Coding :: [TOTAL MINUTES] spent with patient and on the chart (including review of chart, obtaining history, exam, reviewing outside data, placing orders, documenting exam and treatment plan, and counseling patient) on [DATE]. Quality VTE Deep Vein Thrombosis/Pulmonary Embolism Present on Admission: No IH PROFEE Performance Specialist Document charge(s): No
--- NOTE | 2025-04-19 13:12 | P.PN_ITS ---
Subjective Subjective Date Patient Seen: 04/19/25 Interval history: Resting comfortably with at bedside. No significant change from yesterday. Comfortable at rest, becomes dyspneic/tachypneic with minimal exertion walking to bathroom. Exam Vital Signs (past 8 hours): - 04/19/25 08:00 04/19/25 08:33 04/19/25 09:17 Temperature 98.5 F Pulse Rate 63 Respiratory Rate 18 Blood Pressure 120/71 Pulse Oximetry 96 97 Oxygen Delivery Method Nasal Cannula Nasal Cannula Oxygen Flow Rate 7 7 Fraction of Inspired Oxygen 48 04/19/25 12:17 Temperature 96.6 F L Pulse Rate 63 Respiratory Rate 16 Blood Pressure 131/74 Pulse Oximetry 94 Oxygen Delivery Method Oxygen Flow Rate 7 Fraction of Inspired Oxygen Fraction of Inspired Oxygen 48 SaO2/FiO2 Ratio 202 Oxygen Delivery Method Nasal Cannula Oxygen Flow Rate 7 Narrative Exam Narrative: General: Pleasant, NAD HEENT: NC/AT, EOMI, moist membranes CV: RRR, normal S1-S2, no m/g/r Resp: Mild crackles in bilateral lower lobes, right side chest tube secured in place, comfortable WOB on 6 L NC Abd: Soft, NTND, +BS Ext: No edema Skin: No rash or lesions noted Neuro: A&O x3, moves all extremities, no focal deficits Objective Imaging Chest x-ray: Radiologist's impression: XR CHEST 2V INDICATIONS: Pneumothorax w/chest tube TECHNIQUE: 2 views of the chest were acquired. COMPARISON: [facility], CR, XR CHEST 1V, 04/18/2025, 10:06. [facility], CR, XR CHEST 1V, 04/18/2025, 9:38. CT chest 04/18/2025. Chest x-ray one view 04/18/2025. FINDINGS: Surgical changes and devices: Chest tube in mid lung, lower than prior radiograph 04/18/2025. EKG artifact. Lungs and pleura: Mild increase in right apicle pneumothorax. Visualization of horizontal fissure. Bilateral patchy opacities. No focal pleural effusions. Mediastinum: Mediastinal contours are normal. Heart size is normal. Bones and chest wall: Degenerative changes revision lies throughout visualized thoracic spine. No suspicious bony abnormalities. Soft tissues appear unremarkable. IMPRESSION: Mild increase in right upper lobe pneumothorax. Right-sided chest tube has been pulled back. Stable bilateral pulmonary opacities. Dictated by: Sandy Toscano RRA Interpreted: Evan Cisse MD on 04/19/2025 at 10:23 Transcribed by: BRIGITTE on 04/19/2025 at 10:38 Approved by: Evan Cisse M.D. on 04/19/2025 at 11:33 Labs 04/18/25 20:37 04/18/25 20:37 Labs: Laboratory Results - last 24 hr 04/18/25 04/18/25 04/19/25 20:37 23:10 04:58 WBC 16.6 H RBC 3.61 L Hgb 10.5 L Hct 31.4 L MCV 87.0 MCH 29.2 MCHC 33.6 RDW 13.7 Plt Count 394 Neut % (Auto) 81.4 H Lymph % (Auto) 8.4 L [place] % (Auto) 9.3 Eos % (Auto) 0.4 L Baso % (Auto) 0.5 Neut # (Auto) 19931 H Lymph # (Auto) 1400 [place] # (Auto) 1500 H Eos # (Auto) 100 Baso # (Auto) 100 Sodium 135 L Potassium 4.3 Chloride 104 Carbon Dioxide 26 BUN 19 Creatinine 0.93 Estimated GFR > 60 BUN/Creatinine Ratio 20.4 Glucose 115 H Calcium 8.6 Magnesium 2.0 Total Bilirubin 0.5 AST 32 ALT 52 H Alkaline Phosphatase 93 Total Protein 6.1 L Albumin 2.9 L Globulin 3.2 Albumin/Globulin Ratio 0.9 L Chlamy pneumoniae PCR Not detected Adenovirus (PCR) Not detected B. pertussis DNA (PCR) Not detected B.parapertussis DNA PCR Not detected Coronavirus OC43 (PCR) Not detected Coronavirus HKU1 (PCR) Not detected Coronavirus 229E (PCR) Not detected SARS-CoV-2 (PCR) Not detected Coronavirus NL63 (PCR) Not detected Human Metapneumovir PCR Not detected Influenza Type A (PCR) Not detected Influenza Type B (PCR) Not detected M. pneumoniae (PCR) Not detected Parainfluenza 1 (PCR) Not detected Parainfluenza 2 (PCR) Not detected Parainfluenza 3 (PCR) Not detected Parainfluenza 4 (PCR) Not detected RSV (PCR) Not detected Entero/Rhino (PCR) Not detected PFSH Medical History Shoulder pain (~2015) History of colon polyps Surgical History Anesthesia History of tonsillectomy (~1957) History of removal of cyst (~1973) History of colonoscopy (~2014) History of shoulder surgery (~04/2017) Family History Father Brain aneurysm Mother Diabetes mellitus Hypertension Social History household members: spouse and children Smoking Status: Former smoker Tobacco: How many years used: 25 alcohol intake: former substance use type: does not use during the past year weight has: decreased > 10 lbs well-balanced diet: daily or most days Type(s) of exercise: walking frequency: daily duration: 15-30 minutes/day Assessment & Plan Assessment & Plan narrative: 69-year-old male with hypertension, hyperlipidemia admitted for pneumonia and right-sided pneumothorax in the setting of recent inpatient CAP treatment. #pneumonia #cough Persistent, worsening cough x3 weeks with new/worsening leukocytosis compared to recent discharge, now downtrending. -levaquin 750 mg daily (04/18- ) -pip-tazo q8h (04/18- ) -blood/sputum cultures -wean O2 as tolerated -antitussive prn #pneumothorax New right-sided pneumothorax, suspect due to persistent cough over past few weeks with acute worsening SOB leading to presentation. Symptoms significantly improved with chest tube placement. Still becomes extremely SOB and tachypneic w/minimal exertion ambulating to bathroom. Persistent air leak around chest tube, may need xfer to higher level of care for VATS if does not seal off spontaneously. -Dr. Garcia (surgery) consulting for chest tube management, appreciate recs -intermittent suction per surgery -monitor output #hypertension -hold home lisinopril for soft BP #hyperlipidemia -hold home atorvastatin Diet: General DVT ppx: SCDs Code: FULL Primary: Chris MDM: Deyanira Ayala (, ) COVID-19 COVID-19 status: Negative Result date/Date tested (Pos, Neg/Pending): 04/11/25 Time-Based Coding :: 35 minutes spent with patient and on the chart (including review of chart, obtaining history, exam, reviewing outside data, placing orders, documenting exam and treatment plan, and counseling patient) on 04/19/2025. Quality VTE Deep Vein Thrombosis/Pulmonary Embolism Present on Admission: No IH PROFEE Dental Hygiene Administrative Assistant Document charge(s): Yes Charge Codes Critical Care: 68116
[2025-04-20] MEDS: SODIUM CHLORIDE 0.9% 1,000 ML 100 ML IV (00:41)
[2025-04-20] MEDS: PIPERACILLIN/TAZO 3.375 GM in SODIUM CHLORIDE 0.9% 100 ML IV ×2 (00:43→10:48)
[2025-04-20 03:00] VITALS: BP 137/73; PULSE 67; RESP 20; TEMP 36.6; O2SAT 96
[2025-04-20 05:03] LABS: Add Manual Diff / Slide Review NO; Hematocrit 32.1 % (41-53); Hemoglobin 10.8 g/dL (13.5-17.5); Lymphocytes Absolute Auto 1300 /uL (1100-4500); Mean Corpuscular HGB Conc 33.7 % (30-36); Mean Corpuscular Hemoglobin 29.2 PG (26-34); Mean Corpuscular Volume 86.6 fL (80-100); Platelet Count 398 X10^3/uL (150-400)
[2025-04-20 05:18] LABS: Alanine Aminotransferase 39 IU/L (<50); Albumin 2.9 g/dL (3.5-5.0); Albumin Globulin Ratio 1.0 (1.0-2.8); Alkaline Phosphatase 97 U/L (38-126); Blood Urea Nitrogen 14 mg/dL (9-20); Calcium 8.5 mg/dL (8.4-10.2); Carbon Dioxide 26 mmol/L (22-32); Chloride 103 mmol/L (98-107); Estimated Glomerular Filt Rate > 60 mL/min (>60); Globulin 3.0 g/dL (1.7-4.1); Glucose 91 mg/dL (70-99); HEMOLYSIS < 15 (0-50); Potassium 4.0 mmol/L (3.4-5.1); Sodium 136 mmol/L (137-145); Total Protein 5.9 g/dL (6.3-8.2)
[2025-04-20 06:31] VITALS: O2SAT 95
--- NOTE | 2025-04-20 09:32 | CM.DANOTE ---
Initial DCP Assessment Note. Review EMR and PT Interview. Met with patient at bedside to discuss discharge needs.PT is alert x 4 sitting up in bed. No acute distress. Patient lives independent. Lives with . Payor:? [facility] PCP: Dr. Perez . Summary & Plan: 69 yo male arrived to ED c/o SOB. Admitted INPT, Dx. PNA, Chest tube. Plan: IV ABO, recheck labs, bld cx panding. DC home with when stable. Discharge Planning/Care Management CM Discharge Assessment Start: 04/18/25 13:34 Freq: Status: Active Protocol: Document 04/20/25 09:31 (Rec: 04/20/25 09:32 [id number]) Discharge Planning Assessment Assigned Discharge Anny Crain RN CM Buckle Wire Inserter Insurance Medicare Advance Directives? No History Provided By Patient Prior Living House Arrangements Household Members spouse,children Type of Drives own vehicle transporation used prior to admit Independent with ADL Yes 's Is patient alert and Yes oriented? Caregiver for No Another Barriers to No Discharge Discharge Plan Home Transportation DC home with . Arrangement Referrals Initiated None needed Review Status In Process Please Provide Date 04/20/25 Initial DC Assessment Was Performed Next Review Type Continued Stay Review
--- NOTE | 2025-04-20 10:15 | PM.PN.IH.1 ---
Subjective Subjective Date Patient Seen: 04/20/25 Time Patient Seen: 09:50 Interval history: Patient is resting comfortably in bed states he is having some shortness of breath with movement but having no chest pain with the chest tube site. Patient's chest x-ray was performed this morning showed the continuous right pneumothorax radiologist states it might be slightly enlarged. Patient appears to have chronic lung disease also. Pleur-evac is showing a low continuous leak worse with coughing or deep breathing. Morning laboratory shows WBC of 14.5 hemoglobin 10.8 hematocrit is 32.1 platelets are 398,000. Sodium is 136 potassium 4.0 chloride 103 bicarb is 26 BUN 14 creatinine 0.95 random blood sugar is 91 normal LFTs Vitals: Temperature is 97.8? pulse 67 respirations 20 BP is 137/73 SaO2 is 95% on nasal cannula oxygen Heart regular rate and rhythm with occasional dropped beats. Lungs diminished in the bases poor inspiratory and expiratory effort right side less than left abdomen is soft nondistended no masses or peritoneal signs. Impression: Spontaneous right pneumothorax with chest x-ray showing persistent approximately 20-25% pneumothorax with active pleural leak Right chest tube day 3. Plan: Discussed with patient the findings we will discuss with the admitting physician need for possible transfer for evaluation for a VATS for persistent collapsed lung pneumothorax. All questions were answered patient's satisfaction we will start making phone calls to see if any hospitalist we will accept him at this time. The patient has no emergent need for changing out the chest tube at this time we will follow patient closely. Exam Vital Signs (past 8 hours): - 04/20/25 03:00 04/20/25 06:31 04/20/25 06:31 Temperature 97.8 F Pulse Rate 67 Respiratory Rate 20 Blood Pressure 137/73 Pulse Oximetry 96 95 Oxygen Delivery Method Nasal Cannula Oxygen Flow Rate 8 6 04/20/25 07:00 Temperature Pulse Rate Respiratory Rate Blood Pressure Pulse Oximetry Oxygen Delivery Method Nasal Cannula Oxygen Flow Rate Fraction of Inspired Oxygen 50 SaO2/FiO2 Ratio 192 Oxygen Delivery Method Nasal Cannula Oxygen Flow Rate 6 Objective Labs 04/20/25 04:25 04/20/25 04:25 Labs: Laboratory Results - last 24 hr 04/20/25 04:25 WBC 14.5 H RBC 3.70 L Hgb 10.8 L Hct 32.1 L MCV 86.6 MCH 29.2 MCHC 33.7 RDW 13.9 Plt Count 398 Neut % (Auto) 77.4 H Lymph % (Auto) 8.9 L [place] % (Auto) 9.3 Eos % (Auto) 3.2 Baso % (Auto) 1.2 Neut # (Auto) 10994 H Lymph # (Auto) 1300 [place] # (Auto) 1300 H Eos # (Auto) 500 H Baso # (Auto) 200 H Sodium 136 L Potassium 4.0 Chloride 103 Carbon Dioxide 26 BUN 14 Creatinine 0.95 Estimated GFR > 60 BUN/Creatinine Ratio 14.7 Glucose 91 Calcium 8.5 Total Bilirubin 0.4 AST 32 ALT 39 Alkaline Phosphatase 97 Total Protein 5.9 L Albumin 2.9 L Globulin 3.0 Albumin/Globulin Ratio 1.0 PFSH Medical History Shoulder pain (~2015) History of colon polyps Surgical History Anesthesia History of tonsillectomy (~1957) History of removal of cyst (~1973) History of colonoscopy (~2014) History of shoulder surgery (~04/2017) Family History Father Brain aneurysm Mother Diabetes mellitus Hypertension Social History household members: spouse and children Smoking Status: Former smoker Tobacco: How many years used: 25 alcohol intake: former substance use type: does not use during the past year weight has: decreased > 10 lbs well-balanced diet: daily or most days Type(s) of exercise: walking frequency: daily duration: 15-30 minutes/day Assessment & Plan Time-Based Coding :: [TOTAL MINUTES] spent with patient and on the chart (including review of chart, obtaining history, exam, reviewing outside data, placing orders, documenting exam and treatment plan, and counseling patient) on [DATE]. Quality VTE Deep Vein Thrombosis/Pulmonary Embolism Present on Admission: No IH PROFEE Protective Signal Superintendent Document charge(s): Yes
[2025-04-20 11:15] VITALS: BP 178/81; RESP 24; TEMP 36
[2025-04-20 11:30] VITALS: PULSE 77; O2SAT 91
--- NOTE | 2025-04-20 11:37 | P.DS_ITS ---
History of Present Illness History of Present Illness Date Patient Seen: 04/20/25 Time Patient Seen: 11:30 Date of Onset of Symptoms: 04/18/25 Chief complaint: Can't get air. having a hard time breathing Narrative: Patient is a 69-year-old white male presents with a history of pneumonia which was treated outpatient but then developed severe shortness of breath came to the emergency room was noted to have an SaO2 of 30% with chest x-ray showing a large right pneumothorax with a slight mediastinal shift. Chest tube was placed by Dr. Garcia to low continuous suction but patient maintains persistent pneumothorax 20-25% with persistent air leak. Patient has not gotten any better discussed with Dr. Stauffer at [facility] the findings and he does accept the patient for transfer for definitive surgical care. Discharge Providers Provider Date of admission: 04/18/25 14:11 Discharge Date: 04/20/25 Primary care physician: Nato Perez MD Discharge provider: Daljit Simmons DO Summary Hospital Course Discharge Diagnosis: Acute right pneumothorax with persistent air leak and 20-25% pneumothorax non refractory to chest tube care need for referral to surgical services of Dr. Stauffer at [facility] Course: Patient admitted in the hospital on 04/18/2025 with a persistent right pneumothorax patient had chest tube placed by Dr. Garcia the patient continues with air leak and also collapsed lung he is having no chest pain but has shortness of breath with movement around the room as proximally O2 saturation 95% on 6 L nasal cannula. Patient's chest x-ray shows unresolved pneumothorax after 3 days of a Pleur-evac suction is being transferred to [facility] for definitive surgical care. Status at Discharge Cognitive/behavioral status at discharge: oriented Functional status at discharge: bed bound Time Spent with Patient Time spent: Greater than 30 minutes Exam Vital Signs (past 8 hours): - 04/20/25 06:31 04/20/25 06:31 04/20/25 07:00 Pulse Oximetry 95 Oxygen Delivery Method Nasal Cannula Nasal Cannula Oxygen Flow Rate 6 Fraction of Inspired Oxygen 50 SaO2/FiO2 Ratio 192 Oxygen Delivery Method Nasal Cannula Oxygen Flow Rate 6 Narrative Exam Narrative: Heart regular rate and rhythm. Lungs extremely diminished on the right side Pleur-evac shows persistent air leak with tightening with respirations. Minimal subcutaneous air is noted. Abdomen is soft nondistended good active bowel sounds. Objective Labs 04/20/25 04:25 04/20/25 04:25 Labs: Laboratory Results - last 24 hr 04/20/25 04:25 WBC 14.5 H RBC 3.70 L Hgb 10.8 L Hct 32.1 L MCV 86.6 MCH 29.2 MCHC 33.7 RDW 13.9 Plt Count 398 Neut % (Auto) 77.4 H Lymph % (Auto) 8.9 L [place] % (Auto) 9.3 Eos % (Auto) 3.2 Baso % (Auto) 1.2 Neut # (Auto) 47446 H Lymph # (Auto) 1300 [place] # (Auto) 1300 H Eos # (Auto) 500 H Baso # (Auto) 200 H Sodium 136 L Potassium 4.0 Chloride 103 Carbon Dioxide 26 BUN 14 Creatinine 0.95 Estimated GFR > 60 BUN/Creatinine Ratio 14.7 Glucose 91 Calcium 8.5 Total Bilirubin 0.4 AST 32 ALT 39 Alkaline Phosphatase 97 Total Protein 5.9 L Albumin 2.9 L Globulin 3.0 Albumin/Globulin Ratio 1.0 [facility] Medical History Shoulder pain (~2015) History of colon polyps Surgical History Anesthesia History of tonsillectomy (~1957) History of removal of cyst (~1973) History of colonoscopy (~2014) History of shoulder surgery (~04/2017) Family History Father Brain aneurysm Mother Diabetes mellitus Hypertension Social History household members: spouse and children Smoking Status: Former smoker Tobacco: How many years used: 25 alcohol intake: former substance use type: does not use during the past year weight has: decreased > 10 lbs well-balanced diet: daily or most days Type(s) of exercise: walking frequency: daily duration: 15-30 minutes/day Discharge Plan Discharge Plan [facility]position[facility] Other [facility] Under care of provider: Dr. Stauffer Provider Discharge Comment: Patient has a persistent right pneumothorax non refractory to chest tube care need for higher level of care Diet/Activity/Treatments Diet: Diet as Tolerated Food texture: Regular Discharge Data Primary Care Provider: Nato Perez VTE Deep Vein Thrombosis/Pulmonary Embolism Present on Admission: No IH PROFEE Charge Codes Discharge inpatient/observation: [id number] (Patient is stable for transfer to [facility])
--- NOTE | 2025-04-20 13:36 | P.PN_ITS ---
Subjective Subjective Date Patient Seen: 04/20/25 Interval history: The pt remains comfortable this morning. He denies any SOB, chest pain, or other pain. He has mild abdominal discomfort due to no BM recently. Exam Vital Signs (past 8 hours): - 04/20/25 06:31 04/20/25 06:31 04/20/25 07:00 Temperature Pulse Rate Respiratory Rate Blood Pressure Pulse Oximetry 95 Oxygen Delivery Method Nasal Cannula Nasal Cannula Oxygen Flow Rate 6 04/20/25 11:15 04/20/25 11:30 Temperature 96.8 F L Pulse Rate 77 Respiratory Rate 24 Blood Pressure 178/81 H Pulse Oximetry 91 Oxygen Delivery Method Oxygen Flow Rate 6 Fraction of Inspired Oxygen 50 SaO2/FiO2 Ratio 192 Oxygen Delivery Method Nasal Cannula Oxygen Flow Rate 6 Narrative Exam Narrative: Gen: NAD, sitting comfortably in bed, speaking easily in complete sentences CV: RRR, no murmurs Resp: Decreased breath sounds on the right, diffusely with faint crackles, no wheezes Abd: soft, mild diffuse tenderness without rebound/guarding/rigidity, nondistended Ext: no edema Objective Labs 04/20/25 04:25 04/20/25 04:25 Labs: Laboratory Results - last 24 hr 04/20/25 04:25 WBC 14.5 H RBC 3.70 L Hgb 10.8 L Hct 32.1 L MCV 86.6 MCH 29.2 MCHC 33.7 RDW 13.9 Plt Count 398 Neut % (Auto) 77.4 H Lymph % (Auto) 8.9 L [place] % (Auto) 9.3 Eos % (Auto) 3.2 Baso % (Auto) 1.2 Neut # (Auto) 55310 H Lymph # (Auto) 1300 [place] # (Auto) 1300 H Eos # (Auto) 500 H Baso # (Auto) 200 H Sodium 136 L Potassium 4.0 Chloride 103 Carbon Dioxide 26 BUN 14 Creatinine 0.95 Estimated GFR > 60 BUN/Creatinine Ratio 14.7 Glucose 91 Calcium 8.5 Total Bilirubin 0.4 AST 32 ALT 39 Alkaline Phosphatase 97 Total Protein 5.9 L Albumin 2.9 L Globulin 3.0 Albumin/Globulin Ratio 1.0 PFSH Medical History Shoulder pain (~2015) History of colon polyps Surgical History Anesthesia History of tonsillectomy (~8) History of removal of cyst (~1973) History of colonoscopy (~2014) History of shoulder surgery (~04/2017) Family History Father Brain aneurysm Mother Diabetes mellitus Hypertension Social History household members: spouse and children Smoking Status: Former smoker Tobacco: How many years used: 25 alcohol intake: former substance use type: does not use during the past year weight has: decreased > 10 lbs well-balanced diet: daily or most days Type(s) of exercise: walking frequency: daily duration: 15-30 minutes/day Assessment & Plan Assessment & Plan narrative: 69-year-old male with hypertension, hyperlipidemia admitted for pneumonia and right-sided pneumothorax in the setting of recent inpatient CAP treatment. 1) Pneumonia: WBC count continues to trend down. Afebrile. No growth on cultures thus far. - Continue Levaquin 750 mg daily, Zosyn q8hrs (04/18- ) - Wean O2 as tolerated - Antitussive prn 2) Pneumothorax: New right-sided pneumothorax, suspect due to persistent cough over past few weeks with acute worsening SOB leading to presentation. Symptoms significantly improved with chest tube placement. Still becomes extremely SOB and tachypneic w/minimal exertion ambulating to bathroom. Persistent air leak around chest tube. - Discussed with general surgery. They recommend transfer to outside facility for VATS procedure. Will proceed with finding facility to transfer to. 3) Hypertension - Hold home lisinopril for soft BP 4) Hyperlipidemia - Hold home atorvastatin Diet: General DVT ppx: SCDs Code: FULL Primary: Chris MDM: Deyanira Ayala (, ) COVID-19 COVID-19 status: Negative Result date/Date tested (Pos, Neg/Pending): 04/11/25 Time-Based Coding :: [TOTAL MINUTES] spent with patient and on the chart (including review of chart, obtaining history, exam, reviewing outside data, placing orders, documenting exam and treatment plan, and counseling patient) on [DATE]. Quality VTE Deep Vein Thrombosis/Pulmonary Embolism Present on Admission: No [employer] Document charge(s): Yes Charge Codes Subsequent inpatient/observation care: [id number]
== END 2025-04-20 13:07 | disposition short-term general hospital (02) | DRG 208 ==
LOC: ED 13:22 → AC 13:35 → ICU 04-19 09:51
PROVIDERS: Admitting Provider Family Medicine; Emergency Provider Family Medicine; PCP Family Medicine; Referring Provider Family Medicine; Visit Provider Family Medicine
DX: J93.11 Primary spontaneous pneumothorax (principal); J18.9 Pneumonia, unspecified organism; J95.812 Postprocedural air leak; R00.0 Tachycardia, unspecified; I10 Essential (primary) hypertension; E78.5 Hyperlipidemia, unspecified; Z87.891 Personal history of nicotine dependence
CPT/HCPCS: 32551; 36415; 71045; 71046; 71250; 80053; 81001; 82805; 83605; 83735; 83880; 84145; 84484; 85007; 85025; 85610; 87040; 87633; 93005; 93010; 94762; 96365; 96375; 99232; 99285; 99291; J1956; J2543; J3010; J7030; J7050; J7120

== ENCOUNTER → 2025-06-12 12:02 | Outpatient (CLI) | payer MEDICARE, OTHER, SELFPAY ==
[2025-04-18 22:47] VITALS: BMI 26.2
--- NOTE | 2025-06-12 12:05 | DI.RAD.S_ITS ---
PROCEDURE: XR CHEST 2V INDICATIONS: cough, chest tightness TECHNIQUE: 2 views of the chest were acquired. COMPARISON: [facility], CT, CT CHEST WO CON, 04/18/2025, 10:39. [facility], CR, XR CHEST 2V, 04/19/2025, 8:05. FINDINGS: Surgical changes and devices: None. Lungs and pleura: Coarse chronic interstitial changes noted in the right lung. No recurrent pneumothorax. Mediastinum: Mediastinal contours are normal. Heart size is normal. Bones and chest wall: No suspicious bony abnormalities. Soft tissues appear unremarkable. IMPRESSION: Chronic interstitial changes predominantly in the right lung without recurrent pneumothorax. No acute infiltrate Approved by: Miguel Das M.D. on 06/13/2025 at 15:43
[2025-06-12 12:52] LABS: Hematocrit 36.8 % (41-53); Hemoglobin 12.3 g/dL (13.5-17.5); Mean Corpuscular HGB Conc 33.4 % (30-36); Mean Corpuscular Hemoglobin 29.5 PG (26-34); Mean Corpuscular Volume 88.2 fL (80-100); Platelet Count 265 X10^3/uL (150-400)
[2025-06-12 13:14] LABS: Alanine Aminotransferase 23 IU/L (<50); Albumin 4.1 g/dL (3.5-5.0); Albumin Globulin Ratio 1.8 (1.0-2.8); Alkaline Phosphatase 50 U/L (38-126); Blood Urea Nitrogen 21 mg/dL (9-20); Calcium 9.8 mg/dL (8.4-10.2); Carbon Dioxide 24 mmol/L (22-32); Chloride 111 mmol/L (98-107); Cholesterol 184 mg/dL (140-199); Estimated Glomerular Filt Rate > 60 mL/min (>60); Globulin 2.3 g/dL (1.7-4.1); Glucose 141 mg/dL (70-99); HDL Cholesterol 100 mg/dL (40-60); HEMOLYSIS < 15 (0-50); Potassium 5.1 mmol/L (3.4-5.1); Sodium 141 mmol/L (137-145); Total Protein 6.4 g/dL (6.3-8.2); Triglycerides 207 mg/dL (35-150)
[2025-06-12 17:10] LABS: Microalbumi Creatinin Ratio Ur 17.0 ug/mg CR (<30)
== END ==
LOC: RAD 12:05
PROVIDERS: PCP Family Medicine; Referring Provider Family Medicine; Visit Provider Family Medicine
DX: R05.9 Cough, unspecified (principal); R07.89 Other chest pain; I10 Essential (primary) hypertension; E78.2 Mixed hyperlipidemia; Z87.09 Personal history of other diseases of the respiratory system
CPT/HCPCS: 36415; 71046; 80053; 80061; 82043; 82570; 85027

== ENCOUNTER → 2025-06-20 07:26 | Outpatient (CLI) | payer MEDICARE, OTHER, SELFPAY ==
[2025-04-18 22:47] VITALS: BMI 26.2
--- NOTE | 2025-06-20 07:27 | DI.US.S_ITS ---
PROCEDURE: US PERIP VENOUS LOW EXTREM BI INDICATIONS: Bilateral LE DVT (imaging at [facility]). Two months of subsequent anticoagulation. TECHNIQUE: Real-time imaging, as well as color and pulse Doppler interrogation, were performed of the deep veins of both legs from the inguinal ligament to the popliteal fossa, with documentation of the visualized calf veins. COMPARISON: Outside Facility, US, US PERIPH VENOUS UP EXTREM PRUDENCIO, 04/26/2025, 12:44. FINDINGS: Right: There is residual DVT within the mid to distal right superficial femoral vein and within the popliteal vein, also within the posterior tibial vein and peroneal vein on the right. Left: The common femoral, femoral, popliteal, and the visualized calf veins are normally compressible, and free of intraluminal thrombus. Color and pulse Doppler demonstrate normal phasic intravascular flow. There is normal augmentation response to distal compression maneuver. IMPRESSION: Resolution of popliteal and calf vein occlusive thrombosis on the right with reference to the prior study from 04/26/25. Residual thrombus within the distal right superficial femoral vein is seen, but thrombosis in this area was not described on the prior report. The prior outside study on the left described occlusive thrombosis at the popliteal vein, no longer visualized. Dictated by: Brandin Henning M.D. on 06/20/2025 at 9:47 Approved by: Brandin Henning M.D. on 06/20/2025 at 9:59
== END ==
LOC: US 07:27
PROVIDERS: PCP Family Medicine; Referring Provider Family Medicine; Visit Provider Family Medicine
DX: I82.811 Embolism and thrombosis of superficial veins of right lower extremity (principal); I82.431 Acute embolism and thrombosis of right popliteal vein; I82.451 Acute embolism and thrombosis of right peroneal vein; I82.441 Acute embolism and thrombosis of right tibial vein
CPT/HCPCS: 93970